=== PATIENT | female | born 1940 | race Caucasian/White ===

== ENCOUNTER → 2016-06-14 | Day surgery (SDC) | payer OTHER ==
[~2016-06-14] VITALS: Ht 160 cm; Wt 78.0 kg
[~2016-06-14] MED LIST: ACETAMINOPHEN 325 MG TAB PO PRN; ASPI81TA28 PO; ATOR-24 PO; ATROPINE SULFATE 0.1 MG/ML 5ML SYR IV PRN; CLOP1TAB15 PO; FENTANYL CITRATE INJ 50 MCG/1 ML 2 ML VIAL ONE; HEPARIN SOD (PORCINE) 1000 UNIT/ML 10 ML VIAL ONE; IBUP-1050 PO; INSDGI SC; LOSA25TA18 PO; METF-384 PO; MIDAZOLAM HCL 1 MG/ML 2ML VIAL ONE; MULT1CAP16 PO; NITROGLYCERIN/D5W 100MCG/ML 20ML SYR ONE; NTRGSL/4 UT; NiCARDipine HCL INJ 2.5 MG/ML 10 ML AMP ONE; ONDANSETRON INJ 2 MG/ML 2 ML VIAL IV PRN; REPA1TAB42 PO; SODIUM CHLORIDE 0.9% 1000ML 250 ML IV PRN; fiber PO
[2016-06-14 07:27] VITALS: BP 178/78; PULSE 89; TEMP 36.5; O2SAT 97; Ht 160 cm; Wt 78.0 kg
--- NOTE | 2016-06-14 08:37 | History & Physical Bridge Note ---
H&P Re-Evaluation Bridge Note: I have examined the patient, reviewed the History & Physical and in the interval since the performance of the History & Physical I have noted the following changes of clinical significance: No changes noted
--- NOTE | 2016-06-14 09:31 | Procedure Note ---
Pre-Mod Sedation Assessment General Date of Moderate Sedation: Jun 14, 2016. Vital Signs: Vital Signs Past 12 Hours Date Time Temp Pulse Resp B/P Pulse Ox O2 Delivery O2 Flow Rate FiO2 06/14/16 07:27 36.5 89 16 178/78 97 Room Air Review Cardiovascular: regular rate, rhythm, no edema, no gallop Abdomen: normal bowel sounds, non tender, soft Lungs: chest non-tender, lungs clear Pre-Sedation Airway Assessment Oral Cavity: WNL Short Thick Neck: No Hx of Sleep Apnea: No Smoking Status: Never Smoker ASA Classification: Class III Procedure Planning Contraindications-for Mod Sed: None Yes Notes The planned sedation has been discussed with the patient and consent obtained. I have identified the patient, determined the appropriateness of sedation and have assessed the patient immediately prior to the procedure. All medicine(s) and interventions are by my order.
--- NOTE | 2016-06-14 09:33 | Procedure Note ---
Post-Mod Sedation Assessment General Date of Moderate Sedation Jun 14, 2016. Vital Signs: Vital Signs Past 12 Hours Date Time Temp Pulse Resp B/P Pulse Ox O2 Delivery O2 Flow Rate FiO2 06/14/16 07:27 36.5 89 16 178/78 97 Room Air Review - Discharge Criteria Vital Signs Stable: Yes Alert/Oriented/Conversant: Yes Returned to Baseline Mental St: Yes Nausea Absent/Minimal: Yes Pain/Discomfort/Absent/Minimal: Yes Normal/Baseline Respirations: Yes Active Bleeding?: No Pt Received D/C Instructions: Yes Prescriptions Given: None Specific Proced. D/C Criteria Distal Pulses Present (Cardiac: Yes Groin site assessed-Card Cath: N/A Voided Prior To Discharge: N/A Discharged Patients Adult Escort/Transportation: Yes
--- NOTE | 2016-06-14 09:49 | Cardiac Catheterization ---
Procedure Note Procedure Date Jun 14, 2016. Pre-Procedure Diagnosis Positive Stress Test AUC Score 8 Post-Procedure Diagnosis Mild CAD Procedure(s) Performed Coronary Angiography (Start time 0834, Stop time 919), Left Heart Cath Water Proofer Dr. De Guzman Photogrammetrist(s) Jay HOODIS at table. Chantal Vazquez RN monitoring in lab Estimated Blood Loss 5cc Medication(s) Fentanyl (12.5mcg), Heparin, Nicardipine, Nitroglycerin, Versed (1mg), Lidocaine 1% Summary of Findings 60% ostial diagonal 1 otherwise, mild non-obstructive CAD. Hemodynamics Rest Ao: 109/52/78 Final Ao: 143/50/87 LV: 112/0/5 Recommendations Medical therapy and/or Counseling Specimens None Radiation Exposure (mGy) 1048 Contrast (mls) 120 Procedural Complication(s) None Disposition Technical Training Instructor Holding/Recovery ACC Data Cardiac Status Clinical evaluation leading to the procedure CAD Presntation: Positive Stress Test Anginal Classification: CCS II Heart Failure: No Cardiogenic Shock w/in 24Hrs: No Cardiac Arrest w/in 24Hrs: No Stress studies past 6 months: Yes Stress Testing w/SPECT MPI: Yes - Positive, Risk/Extent of Ischemia (High) Cardiac CTA: No Coronary Anatomy Dominant: Co-dominant Left Main (% Stenosis): Normal LAD (% Stenosis): Ostial (Diffuse mild luminal irregularities throughout vessel , 10%) D1 (% Stenosis): Ostial (60%), Proximal (10%), Mid (0%), Distal (10%) Circumflex (% Stenosis): Ostial (0%), Proximal (moderate calcification with 30 % stenosis), Mid (0%), Distal (0%) OM1 (% Stenosis): Normal L PL1 (% Stenosis): Normal L PDA (% Stenosis): Normal RCA (% Stenosis): Ostial (0%, successfully engaged with 3DRC), Proximal (10%), Mid (10%), Distal (10%) R PDA (% Stenosis): Normal R PL1 (% Stenosis): Normal Ramus (% Stenosis): Ostial (large vessel with mild luminal irregularities throught the vessel, 10%), Mid Diagnostic Status: Elective Closure Device Percutaneous Entry Location: Radial Closure Device: Radial Band Recommendations: Medical therapy and/or Counseling Intraprocedure Events Significant Dissection: No Perforation: No
--- NOTE | 2016-06-14 09:53 | Discharge Instructions ---
Discharge Instructions Procedure Procedure Date: Jun 14, 2016. Reason for Visit: Abn Stress Test Dr De Guzman To Do. Discharge Discharge Date: Jun 14, 2016. Discharge Diagnosis: Moderate single branch vessel CAD. Last Recorded Wt (Kilograms): 78 Anesthesia Post Anesthesia Instructions: If you have had General Anesthesia or IV Sedation: * Do not drive today. * Resume driving when surgeon permits. * Do not make important decisions or sign legal documents today. * Call surgeon for: 1. Temperature elevations greater than 101 degrees F. 2. Uncontrollable pain. 3. Excessive bleeding. 4. Persistent nausea and vomiting. 5. Medication intolerance (nausea, vomiting or rash). * For nausea and vomiting use only clear liquids such as: tea, soda, bouillon until nausea subsides, then gradually increase diet as tolerated. * If you have any concerns or questions, call your surgeon's office. If physician is unavailable and it is an emergency, call 911 or go to the nearest emergency room. Instructions Activity Recommendations: limitations as noted below Return to School/Work: with the following limitations Recommended Home Diet: low cholesterol, diabetes diet Allergies: Coded Allergies: Lisinopril (Unverified Adverse Reaction, Mild, cough, 06/14/16) Provider Instructions ACTIVITY RECOMMENDATIONS: Excess manipulation of the wrist should be avoided for the next 24-48 hours. * No lifting over 2 pounds (approximately a 1/2 gallon of milk) with the utilized arm for 24 hours. * No strenuous activity such as bowling or tennis for 3 days. * Keep the site of the procedure covered with a bandage for 24 hours. *You may shower the day after the procedure. Do not take a tub bath or submerge the puncture site in water for the next 3 days. *Do not operate any motorized equipment for 3 days. SPECIAL CARE INSTRUCTIONS: The site may be slightly bruised and sore following your procedure. Should any of the following occur, contact the Dr. who performed your procedure. 1. Redness/inflammation, swelling, chills, or fever, or colored drainage at procedure site within 3-7 days after your procedure. 2. Coldness, discoloration, ongoing numbness, severe pain, or swelling. Expect mild tingling of hand and tenderness at the puncture site for up to three days. If this persists beyond three days, or other symptoms develop, notify the DrDeena who performed your procedure. BLEEDING: If the procedure site on your wrist begins to bleed, do not panic 1. Place 1 or 2 fingers firmly just slightly above the insertion site to stop the bleeding. You may be able to feel your pulse as you hold pressure. 2. Lift your finger after 5 minutes to see if the bleeding has stopped. 3. Once the bleeding has stopped, gently wipe the wrist area clean with a bandage. * If the bleeding from your wrist does not stop after 10 minutes, or if there is a large amount of bleeding or spurting, call 911 (do not drive yourself to the hospital). SKIN IRRITATION: * You may experience some redness and/or swelling in the area where radiation was administered. If any skin irritation occurs, please contact your family physician. FOLLOW UP VISIT: Keep any scheduled doctor appointments. Follow Up Follow-up with: Dr. De Guzman at [facility] in one month. PCP as scheduled. [facility] [place] Recommendations: Call your doctor if: * Temperature above 101 degrees * Pain not relieved by pain medicine ordered * There is increased drainage or redness from any incision * You have any unanswered questions or concerns. Your Doctors Instructions noted above were prepared by provider Luis De Guzman. Patient Signature Section: Patient Instructions Signature Page Laura Arellano Patient (or Guardian) Signature/Date: I have read and understand the instructions given to me by my caregivers. Caregiver/RN/Doctor Signature/Date: The above-named patient and/or guardian has received patient instructions on this date. + Original Patient Signature Page (only) stays with chart. Please make copy for patient.
[2016-06-14 12:00] VITALS: BP 137/56; PULSE 67; O2SAT 95
== END | disposition home or self-care (01) ==
LOC: C.CATH 06:15
PROVIDERS: ATTEND Internal Medicine Cardiovascular Disease
DX: I25.10 Atherosclerotic heart disease of native coronary artery without angina pectoris (principal); R94.39 Abnormal result of other cardiovascular function study; E11.9 Type 2 diabetes mellitus without complications; Z79.4 Long term (current) use of insulin

== ENCOUNTER → 2016-09-11 | Day surgery (SDC) | payer OTHER ==
[2016-09-05 08:40] VITALS: BMI 13.0
[~2016-09-11] VITALS: Ht 157.5 cm; Wt 34.1 kg
[~2016-09-11] MED LIST changes: -ACETAMINOPHEN 325 MG TAB PO PRN; -CLOP1TAB15 PO; +EpHEDrine SULFATE INJ 50 MG/ML AMP IV PRN; -FENTANYL CITRATE INJ 50 MCG/1 ML 2 ML VIAL ONE; -HEPARIN SOD (PORCINE) 1000 UNIT/ML 10 ML VIAL ONE; +LIDOCAINE HCL 2% 2 ML VIAL (20MG/ML) ONE; -MIDAZOLAM HCL 1 MG/ML 2ML VIAL ONE; -NITROGLYCERIN/D5W 100MCG/ML 20ML SYR ONE; -NiCARDipine HCL INJ 2.5 MG/ML 10 ML AMP ONE; -ONDANSETRON INJ 2 MG/ML 2 ML VIAL IV PRN; +PROPOFOL IV EMULSION 10 MG/ML 20 ML VIAL IV ONE; +REPA1TAB26 PO; -REPA1TAB42 PO; -SODIUM CHLORIDE 0.9% 1000ML 250 ML IV PRN; +SODIUM CHLORIDE 0.9% 500ML 500 ML IV ONE; -fiber PO
--- NOTE | 2016-09-11 08:32 | Endo History and Physical ---
History & Physical Date of Service: Sep 11, 2016. Chief Complaint: Anemia Referring Physician: Dr. Howard History of Present Illness Rectal bleeding and anemia Past Medical History Arthritis, High Cholesterol, Hypertension Past Surgical History Hx Cardiac Surgery: Yes (CARDIAC CATH NO STENTS-06/14/16) Hx Internal Defibrillator: No Hx Pacemaker: No Hx Abdominal Surgery: Yes (LAPAROSCOPY) Hx of Implantable Prosthesis: No Hx Post-Op Nausea and Vomiting: No Hx Cancer Surgery: No Hx Thoracic Surgery: No Hx Orthopedic: Yes (R RCR) Hx Urinary Tract Surgery: No Family History None Social History Smoking Status: Never Smoker Hx Substance Use: No Hx Alcohol Use: No Allergies Coded Allergies: Lisinopril (Verified Adverse Reaction, Mild, cough, 09/11/16) Current Medications Reported Home Medications Medications Dose Route/Sig Max Daily Dose Days Date Category Nitrostat (Nitroglycerin) 0.4 Mg Tab 0.4 Mg UT PRN 09/05/16 Reported Lantus (Insulin Glargine) Vial 24 Units SC QPM 04/13/15 Reported Advil (Ibuprofen) 200 Mg Tab 400 Mg PO QAM PRN 04/13/15 Reported Multi Complete (Multiple Vitamins W/ Minerals) 1 Cap Cap 1 Tab PO QAM 04/13/15 Reported Aspirin Ec (Aspirin) 81 Mg Tab 81 Mg PO QPM 04/13/15 Reported Prandin (Repaglinide) 1 Mg Tab 2 Mg PO AC 04/13/15 Reported Glucophage (Metformin Hcl) 1,000 Mg Tab 1,000 Mg PO BID 04/13/15 Reported Cozaar (Losartan Potassium) 25 Mg Tab 1 Tab PO QPM 90 04/13/15 Reported Lipitor (Atorvastatin Calcium) 40 Mg Tab 1 Tab PO QPM 30 04/13/15 Reported Vital Signs Weight (Kilograms): 34.09 Height (Feet): 5 Height (Inches): 2 Physical Exam General Appearance: WD/WN, no apparent distress Respiratory/Chest: Auscultation: breath sounds normal, no wheezing Cardiovascular: Heart Auscultation: RRR, no murmurs Abdomen: Inspection & Palpation: soft, no tenderness, guarding & rebound Assessment and Plan EGD and colonoscopy.
[2016-09-11 08:37] VITALS: Ht 157.5 cm; Wt 34.1 kg
--- NOTE | 2016-09-11 09:43 | Discharge Instructions ---
Endoscopy Patient Instructions Date / Procedure(s) Performed Sep 11, 2016. Colonoscopy, EGD Allergy Information Coded Allergies: Lisinopril (Verified Adverse Reaction, Mild, cough, 09/11/16) Discharge Date / Findings Sep 11, 2016. Internal hemorrhoids, small polyp, rectal ulcer; normal upper endoscopy Medication Instructions Stopped Medication(s): INSTRUCTED TO NOT TAKE INSULIN OR METFORMIN. Restart Stopped Medication(s): Restart all medications today. Provider Instructions Activity Restrictions - No exercising or heavy lifting for 24 hours. - Do not drink alcohol the day of the procedure. - Do not drive a car or operate machinery until the day after the procedure. - Do not make any important decisions or sign important papers in 24 hours after the procedure. Following Day: - Return to full activity which may include returning to work/school. Diet Start your diet with liquids and light foods (jello, soup, juice, toast). Then eat your usual diet if not nauseated. Treatment For Common After Affects For mild abdominal pain, bloating, or excessive gas: - Rest - Eat lightly - Lie on right side Follow-Up Information Follow-up with DR. MENDOZA as scheduled Anesthesia Information What You Should Know You have had a procedure that required some medicine to reduce anxiety and discomfort. This treatment is called moderate sedation. After receiving the treatment, you may be sleepy, but you will be able to breathe on your own. The effects of the treatment may last for several hours. Follow these instructions along with Activity/Diet recommendations noted above: * Do NOT do anything where dizziness or clumsiness would be dangerous. * Rest quietly at home today, then you can be up and about tomorrow. * Have a responsible person stay with you the rest of today. * You may have had an I.V. today. If so, you may take the dressing off later today. Recommendations Call your doctor if: * Trouble breathing * Continuous vomiting for more than 24 hours * Temperature above 101 degrees * Severe abdominal pain or bloating * Pain not relieved by pain medicine ordered * There is increased drainage or redness from any incision * A large amount of rectal bleeding greater than 2-3 tablespoons. (If you had a polyp/s removed or have hemorrhoids, a small amount of blood - from the rectum is to be expected.) * You have any unanswered questions or concerns. IN THE EVENT OF A SERIOUS EMERGENCY, GO TO THE NEAREST EMERGENCY ROOM Your discharge instructions were prepared by provider Jameel Last. Patient Instructions Signature Page Laura Arellano Patient (or Guardian) Signature/Date: I have read and understand the instructions given to me by my caregivers. Caregiver/RN/Doctor Signature/Date: The above-named patient and/or guardian has received patient instructions on this date. + Original Patient Signature Page (only) stays with chart. Please make copy for patient.
--- NOTE | 2016-09-11 09:46 | GI REPORT ---
Procedure Date: 09/11/2016 8:27 AM Procedure: Colonoscopy Indications: Iron deficiency anemia Medicines: Monitored Anesthesia Care Complications: No immediate complications. Estimated blood loss: None. Estimated Blood Loss: Estimated blood loss: none. Procedure: Pre-Anesthesia Assessment: - Prior to the procedure, a History and Physical was performed, and patient medications, allergies and sensitivities were reviewed. The patient's tolerance of previous anesthesia was reviewed. - ASA Grade Assessment: IV - A patient with severe systemic disease that is a constant threat to life. After I obtained informed consent, the scope was passed under direct vision. Throughout the procedure, the patient's blood pressure, pulse, and oxygen saturations were monitored continuously. The On-site loaner was introduced through the anus and advanced to the terminal ileum, with identification of the appendiceal orifice and IC valve. The colonoscopy was performed with ease. The patient tolerated the procedure well. The quality of the bowel preparation was excellent. The bowel preparation used was split dose MIralax. Findings: A 1 mm polyp was found in the rectum. The polyp was sessile. The polyp was removed with a cold biopsy forceps. Resection and retrieval were complete. A single (solitary) two mm ulcer was found in the distal rectum. No bleeding was present. Biopsies were taken with a cold forceps for histology. Internal hemorrhoids were found during retroflexion. The hemorrhoids were medium-sized. Diverticula were found in the sigmoid colon. Verification of patient identification for the specimens was done by the physician and nurse using the patient's name, date and medical record number. Impression: - One 1 mm polyp in the rectum, removed with a cold biopsy forceps. Resected and retrieved. - A single (solitary) ulcer in the distal rectum. Biopsied. - Internal hemorrhoids. - Diverticulosis in the sigmoid colon. Recommendation: - Await pathology results. - Discharge patient to home (with escort). Jameel Last M.D. Jameel Last MD 09/11/2016 9:41:44 AM This report has been signed electronically. Note Initiated On: 09/11/2016 8:27 AM I attest to the content of the Intraoperative Record and orders documented therein, exceptions below
--- NOTE | 2016-09-11 09:46 | GI REPORT ---
Procedure Date: 09/11/2016 8:27 AM Procedure: Upper GI endoscopy Indications: Iron deficiency anemia Medicines: Monitored Anesthesia Care Complications: No immediate complications. Estimated blood loss: None. Estimated Blood Loss: Estimated blood loss: none. Procedure: Pre-Anesthesia Assessment: - Prior to the procedure, a History and Physical was performed, and patient medications, allergies and sensitivities were reviewed. The patient's tolerance of previous anesthesia was reviewed. - ASA Grade Assessment: IV - A patient with severe systemic disease that is a constant threat to life. After obtaining informed consent, the endoscope was passed under direct vision. Throughout the procedure, the patient's blood pressure, pulse, and oxygen saturations were monitored continuously. The Scope was introduced through the mouth, and advanced to the third part of the duodenum. Small bowel enteroscopy was deemed necessary. The upper GI endoscopy was accomplished with ease. The patient tolerated the procedure well. Findings: The upper third of the esophagus, middle third of the esophagus and lower third of the esophagus were normal. The Z-line was regular and was found 40 cm from the incisors. The entire examined stomach was normal. Biopsies were taken with a cold forceps for Helicobacter pylori testing. The examined duodenum was normal. Biopsies for histology were taken with a cold forceps for evaluation of celiac disease. Verification of patient identification for the specimens was done by the physician and nurse using the patient's name, date and medical record number. Impression: - Normal upper third of esophagus, middle third of esophagus and lower third of esophagus. - Z-line regular, 40 cm from the incisors. - Normal stomach. Biopsied. - Normal examined duodenum. Biopsied. Recommendation: - Perform a colonoscopy today. Jameel Last M.D. Jameel Last MD 09/11/2016 9:21:35 AM This report has been signed electronically. Note Initiated On: 09/11/2016 8:27 AM I attest to the content of the Intraoperative Record and orders documented therein, exceptions below
--- NOTE | 2016-09-11 09:46 | Anesthesiology Progress Note ---
Anesthesia Post Op Note Date & Time Sep 11, 2016 at 09:46 Vital Signs Vital Signs Past 12 Hours Date Time Temp Pulse Resp B/P (MAP) Pulse Ox O2 Delivery O2 Flow Rate FiO2 09/11/16 08:38 36.7 84 153/76 (243) 97 Notes Mental Status: alert / awake / arousable, participated in evaluation Pt Amnestic to Procedure: Yes Nausea / Vomiting: adequately controlled Pain: adequately controlled Airway Patency, RR, SpO2: stable & adequate BP & HR: stable & adequate Hydration State: stable & adequate Anesthetic Complications: no major complications apparent
[2016-09-11 10:13] VITALS: BP 154/61; PULSE 61; O2SAT 98
== END | disposition home or self-care (01) ==
LOC: C.GI 08:10
PROVIDERS: ATTEND Internal Medicine Gastroenterology
DX: D50.9 Iron deficiency anemia, unspecified (principal); D12.8 Benign neoplasm of rectum; K64.8 Other hemorrhoids; K62.6 Ulcer of anus and rectum; K57.30 Diverticulosis of large intestine without perforation or abscess without bleeding; K62.5 Hemorrhage of anus and rectum; E78.00 Pure hypercholesterolemia, unspecified; Z79.82 Long term (current) use of aspirin; Z79.899 Other long term (current) drug therapy

== ENCOUNTER 2018-08-06 14:56 | Inpatient (IN) ==
[2018-08-06] MEDS ORDERED: MoRPHine SULFATE 2 MG/ML CARP IV PRN (17:31)
[2018-08-06] MEDS ORDERED: NALOXONE HCL 0.4 MG/1 ML VIAL/CARP IV PRN (17:31)
[2018-08-06] MEDS ORDERED: BISACODYL 10 MG SUPP PR PRN (17:31)
[2018-08-06] MEDS ORDERED: MAGNESIUM HYDROXIDE SUSP 30 ML UDC PO PRN (17:31)
[2018-08-06 18:24] LABS: Basophils # (auto) 0.02 K/uL (0-0.2); Basophils % (auto) 0.1 %; Eosinophils # (auto) 0.01 K/uL (0-0.5); Eosinophils % (auto) 0.1 %; Hematocrit (blood only) 30.7 % (37-47); Hemoglobin 10.2 g/dL (12.0-16.0); Immature Granulocytes # (auto) 0.06 K/uL (0.00-0.02); Immature Granulocytes % (auto) 0.4 %; Lymphocytes # (auto) 1.76 K/uL (1.2-3.4); Lymphocytes % (auto) 10.8 %; Mean Corpuscular Hgb Conc 33.2 g/dL (32-36); Mean Corpuscular Volume 83.2 fL (80-100); Mean Platelet Volume 10.2 fL (7.4-10.4); Monocytes # (auto) 0.05 K/uL (0.11-0.59); Monocytes % (auto) 0.3 %; Neutrophils # (auto) 14.34 K/uL (1.4-6.5); Neutrophils % (auto) 88.3 %; Platelet Count 272 K/uL (130-400); RDW Standard Deviation 42.7 fL (36.4-46.3); Red Blood Count 3.69 M/uL (4.2-5.4); White Blood Count 16.24 K/uL (4.8-10.8)
[2018-08-06] MEDS ORDERED: GLUCOSE 40% GEL 15 GM TUBE PO PRN (18:31)
[2018-08-06] MEDS ORDERED: GLUCAGON FOR INJ 1 MG VIAL SQ PRN (18:31)
[2018-08-06] MEDS ORDERED: DEXTROSE 50% 50 ML SYRINGE IV PRN (18:31)
[2018-08-06] MEDS ORDERED: CARBOHYDRATES FOR HYPOGLYCEMIA PO PRN (18:31)
[2018-08-06] MEDS ORDERED: GLUCOSE 10 TABS/TUBE PO PRN (18:31)
[2018-08-06 18:46] LABS: INR 1.1 (0.9-1.1); Partial Thromboplastin Time 27.1 Seconds (21.0-31.0)
[2018-08-06 18:50] LABS: Albumin Level 3.1 gm/dl (3.4-5.0); BUN Creatinine Ratio 20.4 (10-20); Calcium 9.5 mg/dl (8.5-10.1); Creatinine Clr Calc Pharmacy 50.5 ml/min; Potassium 3.8 mmol/L (3.5-5.1)
[2018-08-06 18:52] LABS: Albumin Globulin Ratio 0.7 (0.9-2); Bilirubin,Total 0.3 mg/dl (0.2-1); Globulin 4.2 gm/dl (2.5-4.0); Total Protein 7.3 gm/dl (6.4-8.2)
--- NOTE | 2018-08-06 20:26 | XRay Report ---
XR chest 1V portable CLINICAL HISTORY: 77 years-old Female presenting with pre op. TECHNIQUE: Portable upright AP view of the chest was obtained. COMPARISON: None. FINDINGS: Atherosclerosis of the aortic arch. Cardiac silhouette top normal in size. Mild pulmonary vascular pr ominence and interstitial thickening suggested. Mildly low lung volumes. Trace bilateral pleural effu sions not excluded. No large pneumothorax. Degenerative changes of the thoracic spine. Upper abdomen normal. IMPRESSION: 1. Findings suggest volume overload and early congestive change. 2. Borderline cardiomegaly. 3. Trace bilateral pleural effusions not excluded. Electronically signed by: Shlomo Demarco M.D. 08/06/2018 8:24 PM
--- NOTE | 2018-08-06 20:41 | XRay Report ---
XR femur RT 2V routine CLINICAL HISTORY: 77 years-old Female presenting with right hip fracture. TECHNIQUE: Frontal and lateral views of the right femur were obtained. COMPARISON: None. FINDINGS: Mildly displaced fracture of the lesser trochanter of the right femur. No gross underlying osseous le isa is apparent. The right hip joint and right knee joint are congruent. Advanced degenerative theodore es of the medial compartment of the knee. Mild degenerative changes of the right hip. Visualized port ion of bony pelvis intact. No additional fracture of the right femur. Stippled calcification in the d istal diaphysis of the femur suggests an underlying chondroid lesion. Osteopenia suspected. IMPRESSION: 1. Mildly displaced avulsion fracture of the lesser trochanter. This traditionally in an adult raise s concern for an underlying lesion and a pathologic avulsion fracture. Correlate for history of meaghan covarrubias. An iliopsoas avulsion fracture is atypical in a patient of this age apart from a pathologic fr acture. 2. Degenerative changes of the knee and hip. Electronically signed by: Shlomo Demarco M.D. 08/06/2018 8:40 PM
[2018-08-06] MEDS ORDERED: INSULIN ASPART 100 UNITS/ML 3 ML PEN SC SCH (21:00)
[2018-08-06] MEDS: ATORVASTATIN 40 MG TAB PO SCH (21:07)
[2018-08-06] MEDS: DOCUSATE SODIUM/SENNA 50/8.6MG TAB PO SCH (21:07)
[2018-08-06] MEDS: INSULIN GLARGINE SOLOSTAR 100 UNITS/ML 3 ML PEN SC SCH (21:09)
--- NOTE | 2018-08-06 21:22 | History & Physical Report ---
Date of Service August 06, 2018 Assessment & Plan (1) Closed right hip fracture: -Admitted to [facility] as a transfer from [facility] ED -Patient found to have a right hip fracture after she sustained with what seems to be a mechanical fall in a grocery store parking lot -EKG without evidence of acute ischemia, labs unremarkable; CXR suggesting early congestive change, however patient does not examine to be volume overloaded on exam -Noted cardiac cath 05/2016-mild to moderate nonobstructive CAD -Echocardiogram 06/2017-EF 65 to 69%, no significant valvular disease -Continue aspirin, statin, beta-fracisco without interruption -Patient would be considered moderate/acceptable risk and can proceed to the OR -Anesthesia consult for preop evaluation -Case was discussed with Dr. Miller regarding patient being anticoagulated on Eliquis -since creatinine clearance is > 30, Eliquis can be held for 24 to 48 hours and patient can proceed to surgery (2) Atrial flutter: -Currently in NSR -Rate controlled on metoprolol which will be continued -Holding Eliquis as above in anticipation of surgical hip repair -resume when okay with orthopedics (3) CKD (chronic kidney disease), stage III: - baseline creat ~ 1.0 - creat noted to be 0.8 today - continue to monitor, avoid nephrotoxic agents when able (4) DM type 2 (diabetes mellitus, type 2): -Hgb A1c 8.5 05/2018 -Hold oral agents and Trulicity and utilize Lantus and NovoLog per protocol while hospitalized (5) Hypertension: -BP controlled, continue metoprolol and losartan (6) Chronic anemia: -Baseline hemoglobin ~ 10-11 -Hgb 10.2 today (7) Mild dementia: -Continue Aricept (8) DVT prophylaxis: -SCDs due to planned surgical hip repair History of Present Illness Chief Complaint: Right hip fracture Primary Care Provider: Rosalinda Howard DO 77-year-old female who was transferred from [facility] ED for management of right hip fracture. Patient received pain medication prior to her arrival history is somewhat limited from her at this time. is the bedside and reports that they were out shopping for groceries when she tripped trying to get into the car. There was no loss of consciousness. No associated chest pain or shortness of breath. reports patient has been doing well recently. No reported chest pain or exertional shortness of breath. Denies other recent illnesses, fevers, chills. No abdominal pain, nausea, vomiting, diarrhea. Denies urinary symptoms. At the time my exam, patient does arouse to loud verbal stimuli, reports she is having right hip pain however that is controlled. Allergies Allergy/AdvReac Type Severity Reaction Status Date / Time lisinopril AdvReac Mild cough Verified 09/11/16 08:25 Home Medications Home Medications Medication Instructions Recorded Confirmed Type apixaban [Eliquis] 5 mg PO BID 08/06/18 08/06/18 History aspirin 81 mg PO DAILY 08/06/18 08/06/18 History atorvastatin 40 mg PO HS 08/06/18 08/06/18 History canagliflozin [Invokana] 100 mg PO DAILY 08/06/18 08/06/18 History cyanocobalamin (vitamin B-12) 1,000 mcg PO DAILY 08/06/18 08/06/18 History donepezil 10 mg PO DAILY 08/06/18 08/06/18 History dulaglutide [Trulicity] 0.75 mg SUBCUT WK 08/06/18 08/06/18 History insulin glargine [Basaglar KwikPen 24 unit SUBCUT HS 08/06/18 08/06/18 History U-100 Insulin] losartan 25 mg PO DAILY 08/06/18 08/06/18 History metformin 1,000 mg PO BID 08/06/18 08/06/18 History metoprolol succinate 25 mg PO DAILY 08/06/18 08/06/18 History mirabegron [Myrbetriq] 25 mg PO DAILY 08/06/18 08/06/18 History vfcbyjov-eyo-PT-lycopen-lutein 1 tab PO DAILY 08/06/18 08/06/18 History [Centrum Silver] Past Med/Surg History Medical History Mild dementia (Chronic) History of hysterectomy (Chronic) Chronic anemia (Chronic) CAD (coronary artery disease) (Chronic) 05/2016-cardiac cath showed mild to moderate nonobstructive CAD Hypertension (Chronic) Atrial flutter (Chronic) CKD (chronic kidney disease), stage III (Chronic) DM type 2 (diabetes mellitus, type 2) (Chronic) Surgical History History of arthroscopy of right shoulder (Chronic) History of cataract surgery (Chronic) History of appendectomy (Chronic) H/O carpal tunnel repair (Chronic) Family History Father Lung disease Social History Preferred Language: Ivorian Communication Ability: Effective Bank Accountant Required: No Beliefs That Will Affect Care: Jainism Current Living Situation: Spouse Other Information That Helps Us Care for You: No Feels Safe at Home: Yes Safety Concerns: Feels Safe At This Time Smoking Status: Never smoker Hx Alcohol Use: No Hx Substance Use: No Review of Systems Review of Systems: Unobtainable due to reduced consciousness Physical Exam Constitutional: WD/WN, vitals as above Eyes: PERRL, conjunctivae normal, anicteric sclerae ENMT: external ear and nose normal, oropharynx normal Respiratory: normal respiratory effort, lungs clear to auscultation Cardiovascular: Rate/Rhythm: regular rate and regular rhythm Vessels: normal peripheral pulses Extremities: no edema Gastrointestinal (Abdomen): normal bowel sounds, soft, nontender, no hepatosplenomegaly Musculoskeletal: Extremities: + abnormal strength (Unable to assess strength secondary to reduced consciousness from pain medications, patient does move all extremities) and + lower leg abnormality (Right leg shortened and externally rotated) Right; no cyanosis and no clubbing Skin: no rashes, warm and dry Neurologic: PERRL, EOMI, accommodation nl, no face palsy, no dysarthria Psychiatric: Orientation: + not alert (Patient arouses to loud verbal stimuli however falls back to sleep quickly during exam and does not answer most questions) Results & Data Vital Signs (Past 12 Hours) Vital Signs Temp Pulse Resp BP Pulse Ox 08/06/18 17:32 36.6 C 87 18 148/71 H 91 Laboratory Results Short CBC 08/06/18 Range/Units 18:09 WBC 16.24 H (4.8-10.8) K/uL Hgb 10.2 L (12.0-16.0) g/dL Hct 30.7 L (37-47) % Plt Count 272 (130-400) K/uL BMP 08/06/18 18:09 Sodium 138 Potassium 3.8 Chloride 104 Carbon Dioxide 25 BUN 18 Creatinine 0.89 Glucose 246 H Calcium 9.5 Liver Function 08/06/18 Range/Units 18:09 Total Bilirubin 0.3 (0.2-1) mg/dl AST 12 L (15-37) U/L ALT 17 (12-78) U/L Alkaline Phosphatase 152 H (45-117) U/L Albumin 3.1 L (3.4-5.0) gm/dl Code Status & VTE Plan Code Status Patient is a full code as per my discussion with patient's and family who is at the bedside. VTE Prophylaxis Plan VTE Prophylaxis will be ordered: Yes Supervising Physician Co-Signing Physician Notes Pt was seen and examined. Agreed with Donna WILBURN exam, assessment and plan. 77-year-old female with PMH of CAD, HTN , atrial flutter was sent from [facility] as a direct admission for right hip fracture. is the bedside and reports that they were out shopping for groceries when she tripped trying to get into the car. currently pain control. There was no loss of consciousness, dizziness and chest pain before the fall. Right hip xray shwoed Mildly displaced avulsion fracture of the lesser trochanter. Ortho on board and plan to take to OR. Pt denies any chest pain, palpitation, dizziness and SOB. as per family pt was very active before the injury. She was able to walk and climb stairs with no chest discomfort, SOB and palpitation. Before the hip fracture, she had a functional status capacity with a METS greater than 4. she had a cardiac cath done on 05/2016 that showed mild to moderate nonobstructive CAD. Echocardiogram on 06/2017 showed EF 65 to 69%, no significant valvular disease. EKG showed no ischemic changes, only bifascicular block. CXR showed Findings suggest volume overload and early congestive change. Procedure risk discussed with patient and family such as bleeding, infection, blood clot, post op complication and even . Intermediate procedure risk and Family understood surgical risk. Ortho will discuss in details with patient and family about the procedure. OK to p roceed with the procedure. Will monitor closely for sign of fluid overload. Hold Eliquis and Keep NPO after midnight. MD Shilpi
[2018-08-06 21:37] LABS: Appearance Urine Clear (Clear); Bacteria Urine Automated 1+ (Negative); Bilirubin Urine Negative (Negative); Blood Urine 2+ (Negative); Color Urine Yellow; Glucose Urine UA 3+ (Negative); Ketones Urine 1+ (Negative); Leukocyte Esterase Urine Negative (Negative); Nitrite Urine Positive (Negative); Protein Urine Negative (Negative); RBC Urine Automated 0-4 /hpf (0-4); Urobilinogen Urine Negative (Negative)
[2018-08-07] MEDS ORDERED: Nursing to Pharmacy Communication ONE ×2 (01:11→17:01)
[2018-08-07] MEDS: INSULIN ASPART 100 UNITS/ML 3 ML PEN SC SCH ×6 (02:11→22:11)
[2018-08-07] MEDS ORDERED: CEFAZOLIN 2000MG 2,000 MG/15 ML SYR IV SCH ×2 (06:00→15:34)
[2018-08-07] MEDS ORDERED: ONDANSETRON INJ 2 MG/ML 2 ML VIAL IV PRN ×2 (06:32→11:44)
[2018-08-07] MEDS ORDERED: SODIUM CHLORIDE 0.9% 1000ML 1,000 ML IV SCH (06:45)
[2018-08-07] MEDS ORDERED: ONDANSETRON INJ 2 MG/ML 2 ML VIAL IV ONE (06:45)
[2018-08-07] MEDS ORDERED: BUPIVACAINE 0.5 % 5 MG/1 ML PF 10ML VIAL ONE (07:00)
[2018-08-07] MEDS: LOSARTAN POTASSIUM 25 MG TAB PO SCH (07:38)
[2018-08-07] MEDS: DONEPEZIL HCL 10 MG TAB PO SCH (07:39)
[2018-08-07 08:10] LABS: Hematocrit (blood only) 30.8 % (37-47); Hemoglobin 10.3 g/dL (12.0-16.0); Mean Corpuscular Hgb Conc 33.4 g/dL (32-36); Mean Corpuscular Volume 82.8 fL (80-100); Platelet Count 300 K/uL (130-400); RDW Coefficient of Variation 14.1 % (11.5-14.5); Red Blood Count 3.72 M/uL (4.2-5.4)
[2018-08-07] MEDS: CEROVITE ADV FORMULA TAB PO SCH (08:11)
[2018-08-07] MEDS: ASPIRIN 81 MG ECTAB PO SCH (08:11)
[2018-08-07] MEDS: CYANOCOBALAMIN 500 MCG TABLET (VITAMIN B-12) PO SCH (08:11)
--- NOTE | 2018-08-07 08:35 | Anesthesiology Consultation ---
Date of Service August 07, 2018 Assessment & Plan (1) Encounter for pre-operative examination: Chart Review Chart Review: Acceptable Risk for Surgery Consults Requested none History Surgery Operation Date: 08/07/18 07:10 Proposed Procedures p Right Trochanteric Nail Hip Synthes - Luis Felipe Miller DO Height/Weight Height: 5 ft 2 in Weight: 73.51 kg Allergies Allergy/AdvReac Type Severity Reaction Status Date / Time lisinopril AdvReac Mild cough Verified 09/11/16 08:25 Medications Home Medications Medication Instructions Recorded Confirmed Last Taken apixaban [Eliquis] 5 mg PO BID 08/06/18 08/06/18 Unknown aspirin 81 mg PO DAILY 08/06/18 08/06/18 Unknown atorvastatin 40 mg PO HS 08/06/18 08/06/18 Unknown canagliflozin [Invokana] 100 mg PO DAILY 08/06/18 08/06/18 Unknown cyanocobalamin (vitamin B-12) 1,000 mcg PO DAILY 08/06/18 08/06/18 Unknown donepezil 10 mg PO DAILY 08/06/18 08/06/18 Unknown dulaglutide [Trulicity] 0.75 mg SUBCUT WK 08/06/18 08/06/18 Unknown insulin glargine [Basaglar KwikPen 24 unit SUBCUT HS 08/06/18 08/06/18 Unknown U-100 Insulin] losartan 25 mg PO DAILY 08/06/18 08/06/18 Unknown metformin 1,000 mg PO BID 08/06/18 08/06/18 Unknown metoprolol succinate 25 mg PO DAILY 08/06/18 08/06/18 Unknown mirabegron [Myrbetriq] 25 mg PO DAILY 08/06/18 08/06/18 Unknown ozoulczz-loc-JH-lycopen-lutein 1 tab PO DAILY 08/06/18 08/06/18 Unknown [Centrum Silver] Active Medications Generic Name Dose Route Start Last Admin Trade Name Freq PRN Reason Stop Dose Admin Aspirin 81 mg 08/07/18 09:00 08/07/18 08:11 Ecotrin Ectab PO 09/06/18 08:59 Not Given DAILY CAROL Atorvastatin Calcium 40 mg 08/06/18 21:00 08/06/18 21:07 Lipitor PO 09/05/18 20:59 Not Given HS CAROL Cyanocobalamin 1,000 mcg 08/07/18 09:00 08/07/18 08:11 Vitamin B-12 PO 09/06/18 08:59 Not Given DAILY CAROL Donepezil HCl 10 mg 08/07/18 09:00 08/07/18 07:39 Aricept PO 09/06/18 08:59 10 mg DAILY CAROL Administration Sodium Chloride 1,000 mls @ 80 mls/hr 08/07/18 06:45 08/07/18 06:51 Nss 1000ml IV 09/06/18 06:44 80 mls/hr .[id number] CAROL Administration Insulin Aspart 0 units 08/07/18 01:30 08/07/18 06:14 Novolog Flexpen SC 09/06/18 01:29 2 units Q6 CAROL Administration Insulin Glargine 0 - 15 units 08/06/18 21:00 08/06/18 21:09 Lantus Solostar Pen SC 09/05/18 20:59 15 units BID CAROL Administration Losartan Potassium 25 mg 08/07/18 09:00 08/07/18 07:38 Cozaar PO 09/06/18 08:59 25 mg DAILY CAROL Administration Metoprolol Succinate 25 mg 08/07/18 09:00 08/07/18 07:38 Toprol Xl PO 09/06/18 08:59 25 mg DAILY CAROL Administration Mirabegron 25 mg 08/07/18 09:00 08/07/18 08:11 Myrbetriq Er PO 09/06/18 08:59 Not Given DAILY CAROL Morphine Sulfate 2 mg 08/06/18 17:31 08/07/18 06:15 Morphine Sulfate IV 08/20/18 17:30 2 mg Q4H PRN Administration MODERATE Pain (Scale 4,5,6) Multivitamins/Minerals 1 tab 08/07/18 09:00 08/07/18 08:11 Multivitamin W/ Minerals Tab PO 09/06/18 08:59 Not Given DAILY CAROL Senna/Docusate Sodium 2 tab 08/06/18 21:00 08/06/18 21:07 Senokot S PO 09/05/18 20:59 Not Given HS CAROL NPO Date Last Intake of Fluids: 08/06/18 Time Last Intake of Fluids: 23:59 Date Last Intake of Solids: 05/21/19 Time Last Intake of Solids: 23:59 Past Medical History Medical History Mild dementia (Chronic) History of hysterectomy (Chronic) Chronic anemia (Chronic) CAD (coronary artery disease) (Chronic) 05/2016-cardiac cath showed mild to moderate nonobstructive CAD Hypertension (Chronic) Atrial flutter (Chronic) CKD (chronic kidney disease), stage III (Chronic) DM type 2 (diabetes mellitus, type 2) (Chronic) Exercise / Class Metabolic Activity III < 4 Walking/Shop/Light housework Past Family History Family History Father Lung disease Past Surgical History Surgical History History of arthroscopy of right shoulder (Chronic) History of cataract surgery (Chronic) History of appendectomy (Chronic) H/O carpal tunnel repair (Chronic) Social History Smoking Status: Never smoker Hx Alcohol Use: No Hx Substance Use: No Physical Exam Vital Signs Last Vital Signs Temp 98.4 F 08/07/18 07:53 Pulse 81 08/07/18 07:53 Resp 18 08/07/18 07:53 BP 131/63 08/07/18 07:53 Pulse Ox 93 08/07/18 07:53 ENMT Mouth: + dental restorations Thyromental Distance: > or= 3.5 Finger Breadths Mallampati Class: II Neck normal visual inspection Respiratory normal respiratory effort Auscultation: lungs clear to auscultation bilaterally Cardiovascular Rate/Rhythm: regular rate and regular rhythm Testing Electrocardiogram Date: 08/06/18 Normal sinus rhythm, rate 82 bpm Possible Left atrial enlargement Right bundle branch block Left anterior fascicular block Bifascicular block Abnormal ECG When compared with ECG of 04-JAN-2009 17:46, Left anterior fascicular block is now Present T wave inversion no longer evident in Anterior leads Chest X-Ray Date: 08/06/18 IMPRESSION: 1. Findings suggest volume overload and early congestive change. 2. Borderline cardiomegaly. 3. Trace bilateral pleural effusions not excluded. Echocardiogram Date: 06/20/17 EF: 65-69% LV Function: normal RWMA: + none There are periods of atrial flutter with 2:1 conduction, and sinus rhythm in the 70s during study. There is aortic valve sclerosis without stenosis. Cardiac Catheterization Date: 06/14/16 Dominant: Co-dominant Left Main (% Stenosis): Normal LAD (% Stenosis): Ostial (Diffuse mild luminal irregularities throughout vessel, 10%) D1 (% Stenosis): Ostial (60%), Proximal (10%), Mid (0%), Distal (10%) Circumflex (% Stenosis): Ostial (0%), Proximal (moderate calcification with 30% stenosis), Mid (0%), Distal (0%) OM1 (% Stenosis): Normal L PL1 (% Stenosis): Normal L PDA (% Stenosis): Normal RCA (% Stenosis): Ostial (0%, successfully engaged with 3DRC), Proximal (10%), Mid (10%), Distal (10%) R PDA (% Stenosis): Normal R PL1 (% Stenosis): Normal Ramus (% Stenosis): Ostial (large vessel with mild luminal irregularities throught the vessel, 10%), Mid
[2018-08-07 08:38] LABS: Calcium 9.2 mg/dl (8.5-10.1); Creatinine Clr Calc Pharmacy 46.3 ml/min; Est GFR (African American) 65.8; Est GFR (Non-African American) 56.7; Potassium 3.8 mmol/L (3.5-5.1)
[2018-08-07] MEDS ORDERED: METOPROLOL SUCC 25MG EXT REL TAB PO SCH (09:00)
[2018-08-07] MEDS ORDERED: MIRABEGRON ER 25 MG TAB PO SCH (09:00)
[2018-08-07] MEDS: INSULIN GLARGINE SOLOSTAR 100 UNITS/ML 3 ML PEN SC SCH ×2 (09:53→21:33)
[2018-08-07] MEDS ORDERED: fentaNYL citrate 100 MCG/2 ML VIAL ONE (10:33)
[2018-08-07] MEDS ORDERED: LIDOCAINE HCL 2% 2 ML VIAL/AMP(20MG/ML) INFIL ONE (10:33)
[2018-08-07] MEDS ORDERED: PROPOFOL IV EMULSION 10 MG/ML 20 ML VIAL IV ONE (10:33)
[2018-08-07] MEDS ORDERED: ONDANSETRON INJ 2 MG/ML 2 ML VIAL ONE (10:33)
--- NOTE | 2018-08-07 10:38 | Orthopedic Consultation ---
Date of Consultation August 07, 2018 Assessment & Plan (1) Closed right hip fracture: Right intertrochanteric hip fracture noted on CT scan. Femur films done last night here at [facility] showed an avulsion fracture of the lesser trochanter but no other fracture. I spoke with in radiology this morning. He reviewed the CT scan that was done at [facility] and confirmed that she does have an intertrochanteric hip fracture of the right hip. Patient will need a trochanteric femoral nailing performed. Patient is currently on Eliquis which has been held. This is planned today for early afternoon with Dr Miller. Examined, agree with above assessment plan. I have indicated the patient for closed reduction internal fixation of right hip with cephalo-medullary nail. The risk benefits complications alternatives of the procedure were expanded the patient detail which include however not limited to infection, blood clots, acute blood loss, injury to surrounding nerves, bone, vessels, soft tissue, arthrofibrosis, chronic pain, malunion, nonunion, failure of the implant, need for additional surgery, loss of limb and loss of life. The patient and family members wish to proceed with surgical intervention at this time informed consent was obtained. Supervising Physician Co-Signing Physician Notes MD Shilpi History of Present Illness Reason for Consultation: Right intertrochanteric hip fracture Attending Physician: Isidoro Vanegas MD History of Present Illness Patient is a 77-year-old female who states that she went to the grocery store with her yesterday. Family is present and provides some history as well. After shopping, they decided to switch drivers of the vehicle. The patient was getting out of her door and standing up to go around the other side of the car. At that point she states she does not really remember what happened but it happened very fast and she went down onto the pavement onto her right side. She had immediate pain in the right hip and groin and was unable to bear weight on the right lower extremity. She denies loss of consciousness. She denies shortness of breath, chest pain, lightheadedness prior to or after the fall. An ambulance was called and she was taken to [facility]. There x-rays were taken as well as CT scans and it was found that she had a right intertrochanteric hip fracture. There was no orthopedic surgeon guide excursion at that time and she was then transferred to [facility] we [facility] been asked to take care of her hip fracture. Allergies Allergy/AdvReac Type Severity Reaction Status Date / Time lisinopril AdvReac Mild cough Verified 09/11/16 08:25 Home Medications Home Medications Medication Instructions Recorded Confirmed Type apixaban [Eliquis] 5 mg PO BID 08/06/18 08/06/18 History aspirin 81 mg PO DAILY 08/06/18 08/06/18 History atorvastatin 40 mg PO HS 08/06/18 08/06/18 History canagliflozin [Invokana] 100 mg PO DAILY 08/06/18 08/06/18 History cyanocobalamin (vitamin B-12) 1,000 mcg PO DAILY 08/06/18 08/06/18 History donepezil 10 mg PO DAILY 08/06/18 08/06/18 History dulaglutide [Trulicity] 0.75 mg SUBCUT WK 08/06/18 08/06/18 History insulin glargine [Basaglar KwikPen 24 unit SUBCUT HS 08/06/18 08/06/18 History U-100 Insulin] losartan 25 mg PO DAILY 08/06/18 08/06/18 History metformin 1,000 mg PO BID 08/06/18 08/06/18 History metoprolol succinate 25 mg PO DAILY 08/06/18 08/06/18 History mirabegron [Myrbetriq] 25 mg PO DAILY 08/06/18 08/06/18 History ktkhmpyq-fyp-QL-lycopen-lutein 1 tab PO DAILY 08/06/18 08/06/18 History [Centrum Silver] Patient History Medical History Mild dementia (Chronic) History of hysterectomy (Chronic) Chronic anemia (Chronic) CAD (coronary artery disease) (Chronic) 05/2016-cardiac cath showed mild to moderate nonobstructive CAD Hypertension (Chronic) Atrial flutter (Chronic) CKD (chronic kidney disease), stage III (Chronic) DM type 2 (diabetes mellitus, type 2) (Chronic) Surgical History History of arthroscopy of right shoulder (Chronic) History of cataract surgery (Chronic) History of appendectomy (Chronic) H/O carpal tunnel repair (Chronic) Family History Father Lung disease Social History Preferred Language: Austrian Communication Ability: Effective First Assist Required: No Beliefs That Will Affect Care: Voodoo marital status: Current Living Situation: Spouse Other Information That Helps Us Care for You: No Feels Safe at Home: Yes Safety Concerns: Feels Safe At This Time Smoking Status: Never smoker Hx Alcohol Use: No Hx Substance Use: No Review of Systems Review of Systems: All systems reviewed & are unremarkable except as noted in HPI & below Constitutional: as per Subjective / HPI Physical Exam Physical Exam: On examination the patient is well-developed, well-nourished, white female who is alert and oriented to person and place. She appears comfortable at this time and is in no acute distress. Pleasant and cooperative. Focusing the exam on her right lower extremity, it is mildly shortened and externally rotated compared to the left. No range of motion of the hip was done at this time due to fracture but she does have discomfort with mild internal/ex ternal rotation. She denies any right knee pain at this time and no range of motion is done with the knee due to hip fracture. She has good range of motion of her right ankle and toes and has good sensation. She denies any discomfort in the left lower extremity and is nontender at the hip knee and ankle. Range of motion within normal limits. Distal pulses are equal bilaterally of the lower extremities. Upper extremities are unaffected. She initially had right elbow pain upon impact but at this point in time, she has good range of motion, no areas of abrasions or bruising, and no pain on palpation. She is nontender the shoulders elbows and wrists and has good range of motion of all. She denies neck pain on palpation. She is having some lower back pain since the fall. Currently I cannot reproduce the back pain on palpation. She denies any radiculopathy down into the lower extremities and the pain in her lower back is not as bad as it was. Distal pulses of the upper extremities are equal bilaterally. She has no gross motor or sensory loss seen at this time. RLE NVSI +EHL/FHL/TA/GS SILT grossly, +2 DP pulse, compartments soft NT Constitutional: WD/WN, vitals as above Results & Data Vital Signs (Past 12 Hours) Vital Signs Temp Pulse Pulse Resp BP Pulse Ox Pulse Ox 08/07/18 07:53 36.9 C 81 18 131/63 93 08/07/18 05:13 94 08/06/18 23:45 94 08/06/18 23:27 36.6 C 82 14 131/65 94
[2018-08-07] MEDS ORDERED: PHENYLEPHRINE 100MCG/ML 5ML SYR IV PRN (11:44)
[2018-08-07] MEDS ORDERED: fentaNYL citrate 100 MCG/2 ML VIAL IV PRN (11:44)
[2018-08-07] MEDS ORDERED: MEPERIDINE HCL 25 MG/ML CARP IV PRN (11:44)
[2018-08-07] MEDS ORDERED: ATROPINE SULFATE 0.1 MG/ML 10ML SYR IV PRN (11:44)
[2018-08-07] MEDS ORDERED: HYDROmorphone INJ 1 MG/ML SYRINGE IV PRN (11:44)
[2018-08-07] MEDS ORDERED: LABETALOL HCL IV 5 MG/ML 20ML IV PRN (11:44)
[2018-08-07] MEDS ORDERED: ePHEDrine sulfate 50 MG/ML AMP IV PRN (11:44)
[2018-08-07] MEDS ORDERED: HYDROmorphone INJ 2 MG/ML SYR/VIAL ONE (11:51)
[2018-08-07] MEDS ORDERED: BUPIVACAINE/EPINEPHRINE 0.5% MPF 1:200,000 30 ML VIAL ONE (12:27)
--- NOTE | 2018-08-07 12:28 | History & Physical Bridge Note ---
Date of Service August 07, 2018 History & Physical Bridge Note I have examined the patient, reviewed the History & Physical and in the interval since the performance of the History & Physical I have noted the following changes of clinical significance: no changes noted
[2018-08-07] MEDS ORDERED: CEFAZOLIN 2000MG 2,000 MG/15 ML SYR IV ONE (12:30)
--- NOTE | 2018-08-07 13:43 | Post Operative Brief Note ---
Immediate Post Op Note v1 Date of Surgery August 07, 2018 Pre & Post Diagnosis Operation Date: 08/07/18 07:10 Pre-Op Diagnosis: RIGHT HIP FRACTURE Post-Op Diagnosis: RIGHT HIP FRACTURE Procedure Operation Date: 08/07/18 07:10 Actual Procedures p Closed Reduction Internal Fixation Right Hip with Cephalomedullary Nail(Right) - Luis Felipe Miller DO Surgeon Luis Felipe Miller DO Card Runner none Estimated Blood Loss 45 Findings Consistent with Post-Op Diagnosis Fluids 700 cc LR Specimens none Anesthesia Type General Complications none Disposition Disposition: Recovery Room Overlapping Procedure I was present for: the critical portions of procedure. I was immediately available: during the entire case. Back up surgeon: was not required during procedure.
--- NOTE | 2018-08-07 13:58 | Operative Report ---
Post Operative Report Pre & Post Diagnosis Operation Date: 08/07/18 07:10 Pre-Op Diagnosis: RIGHT HIP FRACTURE Post-Op Diagnosis: RIGHT HIP FRACTURE Procedure Operation Date: 08/07/18 07:10 Actual Procedures p Closed Reduction Internal Fixation Right Hip with Cephalomedullary Nail(Right) - Luis Felipe Miller DO Surgeon Luis Felipe Miller DO Band Attacher none Estimated Blood Loss 45 Findings Consistent with Post-Op Diagnosis Fluids 700 cc LR Specimens None Anesthesia Type General Complications none Indications The patient is a 77yo female with displaced right intertrochanteric hip fracture sustained after a fall from standing height. The patient was medically stabilized on 08/07/2018. I indicated the patient for right hip cephalomedullary nail. The patient and family was informed of the risks and benefits of surgery, which include but not limited to infection, bleeding, blood clots, damage to nerves, vessels, bone and soft tissue, dislocation, leg length discrepancy, malunion, nonunion, failure of the implants, need for additional surgery and . The patient and family collectively chose to proceed with surgical intervention and informed consent was obtained. Description of Procedure Following induction of adequate general anesthesia, the patient was placed on the fracture table. The left leg was placed in the well leg elizabeth and the right leg in the traction leg elizabeth. All bony prominences were protected. Utilizing c-arm fluoroscopy closed reduction of the fracture was performed. Once satisfied with fracture reduction the right hip was prepped and draped in the usual sterile manner. A time out was performed and site verified. The incision was made from the tip of the greater trochanter proximally. Subcutaneous tissue was sharply dissected to the tip of the greater trochanter, electrocautery used for hemostasis. Under fluoroscopic guidance the drill tipped guidewire was inserted at the tip of the greater trochanter and advanced into the medullary canal. Utilizing the intramedullary drill the guidewire was overdrilled with tissue protector attached. A 10 mm short Synthes TFN was inserted and impacted into position and confirmed by c-arm fluoroscopy. Next the aiming arm was attached to the insertion handle. A incision was made and carried down through subcutaneous tissues to bone. The blade guide sleeve was inserted and secured down to bone. The guide wire was passed across the fracture site to the tip of the femoral head, position was confirmed in the AP and lateral planes utilizing c-arm fluoroscopy. The guide pin was measured and the 11.0mm drill bit passed over the guide pin to open lateral cortex followed by a 6.0mm/10.0mm cannulated reamer to a depth of 95 mm. Next the helical blade was inserted and locked proximally. Traction was released and interfragmentary compression applied. Distally a stab incision was made in the skin and carried down to bone. The triple trocar assembly was inserted into the aiming guide to bone. Utilizing a 4.0mm drill, both cortices were drilled. The nail was locked distally using a single 4.9mm x 36 mm locking bolt. The aiming guide was removed at this time and final radiographs were obtained utilizing c-arm fluoroscopy to confirm overall position and fracture reduction. Incisions were irrigated with copious amounts of sterile saline solution. Subcutaneous tissue were injected utilizing .5% marcaine with epi. Deep closure was performed using #1 Vicryl followed by 2-0 Vicryl for subcutaneous tissues and ray in the skin. Sterile dressing, Xeroform gauze, 4x4s and tegaderm were applied. The patient tolerated the procedure well and was transported to the PACU in stable condition. I attest to the content of the Intraoperative Record and any orders documented therein. Any exceptions are noted below.
--- NOTE | 2018-08-07 14:27 | XRay Report ---
XR hip RT min 2V CLINICAL HISTORY: 77 years-old Female presenting with Post-Operative implant position. TECHNIQUE: Frontal and crosstable lateral views of the right hip were obtained. COMPARISON: 08/06/2018. FINDINGS: There has been interval intramedullary nail fixation of the right femoral neck and proximal metadiaph ysis with distal interlocking screw and better appreciated on the current exam is the presence of a b asicervical right femoral neck fracture. The fracture plane extends through the lesser trochanter acc ounting for the displaced lesser trochanteric fracture fragment. The absence of a visualized underlyi ng pathologic lesion associated with the donor site for the lesser trochanter is understandable given the basicervical femoral neck fracture. Trace proximal displacement of the distal fracture fragment relative to the neck resulting in cortica l offset medially of 5 mm that was not apparent on the prior exam. Expected postsurgical soft tissue emphysema. Overlying skin ray. Right femoral head remains congruent in the acetabulum. Visualized portion of bony pelvis intact. Atherosclerosis. IMPRESSION: Interval intramedullary nail fixation of the basicervical right femoral neck fracture. Alignment is l ikely within the range of what is expected postsurgically. No hardware complication. Electronically signed by: Shlomo Demarco M.D. 08/07/2018 2:26 PM
--- NOTE | 2018-08-07 14:34 | Fluoroscopy Report ---
FL hip RT 2-3V CLINICAL HISTORY: RIGHT TROCH NAIL COMPARISON STUDY: 08/06/2017 FLUOROSCOPY TIME: 1 minute 22 seconds NUMBER OF FLUOROSCOPIC IMAGES: 4 FINDINGS: Image intensifier utilized for intraoperative right hip IMPRESSION: Image intensifier utilized for intraoperative right hip nailing procedure The above report was generated using voice recognition software. It may contain grammatical, syntax or spelling errors. Electronically signed by: Juan Chauhan M.D. 08/07/2018 2:33 PM
--- NOTE | 2018-08-07 14:55 | Anesthesiology Progress Note ---
Date of Service August 07, 2018 Anesthesia Post Procedure Vital Signs Vital Signs: Temp Pulse Pulse Resp BP Pulse Ox Pulse Ox 08/07/18 14:50 83 15 144/79 H 93 08/07/18 14:40 77 16 164/76 H 100 08/07/18 14:30 36.4 C L 75 21 184/70 H 99 08/07/18 14:20 77 19 164/73 H 99 08/07/18 14:10 73 13 163/78 H 100 08/07/18 14:00 78 17 172/80 H 100 08/07/18 13:51 36.6 C 82 17 156/69 H 97 08/07/18 11:34 36.3 C L 80 18 146/75 H 98 08/07/18 07:53 36.9 C 81 18 131/63 93 08/07/18 05:13 94 08/06/18 23:45 94 08/06/18 23:27 36.6 C 82 14 131/65 94 08/06/18 17:32 36.6 C 87 18 148/71 H 91 Pain Intensity Right Hip: Pain Intensity: 0 Transfer of Care Handoff Completed per policy Notes Mental Status: alert / awake / arousable Patient Amnestic to Procedure: Yes Nausea / Vomiting: adequately controlled Pain: adequately controlled Airway Patency, RR, SpO2: stable & adequate BP & HR: stable & adequate Hydration State: stable & adequate Anesthetic Complications: no major complications apparent and Pt Satisfied with anesthetic care Notes: The patient is stable and awake at baseline.
--- NOTE | 2018-08-07 14:56 | Orthopedic Progress Note ---
Date of Service August 07, 2018 Assessment & Plan (1) Closed right hip fracture: Status post closed reduction internal fixation right hip short cephalo- medullary nail -Ancef x24 -DVT prophylaxis SCDs/teds, will restart Eliquis postop day #1 -Partial weightbearing right lower extremity -PT/OT -Postoperative x-ray demonstrates a well aligned well fixed orthopedic implant without new fracture or dislocation -A.m. labs Subjective Post Operative Progress Note Patient seen in PACU, comfortable, denies complaints, pain well controlled, no acute issues. Still waking up from general anesthesia. Review of Systems Review of Systems: All systems reviewed & are unremarkable except as noted in HPI & below Constitutional: as per Subjective / HPI Physical Exam Physical Exam: RLE NVSI +EHL/FHL/TA/GS SILT grossly, +2 DP pulse, compartments soft NT, dressing cdi. Constitutional: WD/WN, vitals as above Results & Data Vital Signs (Past 12 Hours) Vital Signs Temp Pulse Resp BP Pulse Ox Pulse Ox 08/07/18 14:50 83 15 144/79 H 93 08/07/18 14:40 77 16 164/76 H 100 08/07/18 14:30 36.4 C L 75 21 184/70 H 99 08/07/18 14:20 77 19 164/73 H 99 08/07/18 14:10 73 13 163/78 H 100 08/07/18 14:00 78 17 172/80 H 100 08/07/18 13:51 36.6 C 82 17 156/69 H 97 08/07/18 11:34 36.3 C L 80 18 146/75 H 98 08/07/18 07:53 36.9 C 81 18 131/63 93 08/07/18 05:13 94
[2018-08-07] MEDS ORDERED: HYDROmorphone INJ 0.5 MG/0.5 ML SYR IV PRN (15:34)
[2018-08-07] MEDS ORDERED: COUGH DROP (SUGAR FREE) LOZ 24 LOZ/1 BOX LOZ PRN (15:34)
[2018-08-07] MEDS ORDERED: NALOXONE HCL 0.4 MG/1 ML VIAL/CARP IV PRN (15:34)
[2018-08-07] MEDS: SODIUM CHLORIDE 0.9% 1000ML 1,000 ML IV SCH (16:49)
[2018-08-07] MEDS ORDERED: cefTRIAXone SODIUM 1,000 MG in DEXTROSE 5% 50 ML IV SCH (18:00)
--- NOTE | 2018-08-07 18:10 | Hospitalist Progress Note ---
Date of Service August 07, 2018 Assessment & Plan (1) Closed right hip fracture: Right hip fracture after a mechanical fall S/P Closed Reduction Internal Fixation Right Hip with Cephalomedullary Nail POD #0 Appreciate Orthopedics help Monitor CBC DVT Px: SCDs for now--Plan to restart eliquis tmw Partial weightbearing right lower extremity PT/OT Nonobstructive CAD Echocardiogram 06/2017-EF 65 to 69%, no significant valvular disease Continue aspirin, statin, beta-fracisco (2) Atrial flutter: Currently in Sinus Continue metoprolol Resume Eliquis as able (3) CKD (chronic kidney disease), stage III: baseline creat ~ 1.0 Monitor renal function (4) DM type 2 (diabetes mellitus, type 2): Hgb A1c 8.5 05/2018 Hold oral agents and Trulicity Continue ISS, Lantus (5) Hypertension: BP Stable Continue metoprolol, losartan (6) Chronic anemia: Baseline hemoglobin ~ 10-11 Monitor CBC (7) Mild dementia: Continue Aricept (8) DVT prophylaxis: SCDs for now Subjective Patient is seen and examined post operatively Currently lethargic States leg pain at surgical site is controlled Denies chest pain, SOB, dizziness, dysuria Family at bedside Offers no other complaints Review of Systems Review of Systems: All systems reviewed & are unremarkable except as noted in HPI & below Physical Exam Physical Exam: Physical Exam: Vitals signs as noted above General Appearance:Moderately built and nourished, no apparent distress Head: normocephalic, Atraumatic Eyes: normal inspection, EOMI Neck: supple, Trachea midline Respiratory/Chest: Normal breath sounds, CTA Cardiovascular: S1, S2, No murmur Abdomen/GI:Soft, Non tender, Bowel sounds present Extremities/Musculoskelatal:normal inspection, no edema, Right hip surgical site in dressing Neurologic/Psych:grossly no focal neurological deficits Skin: normal color, warm Results & Data Vital Signs (Past 12 Hours) Vital Signs Temp Pulse Pulse Resp BP Pulse Ox 08/07/18 17:49 36.2 C L 70 18 154/76 H 94 08/07/18 16:23 36.5 C 66 18 153/73 H 97 08/07/18 15:57 36.5 C 74 18 151/73 H 95 08/07/18 15:10 78 15 141/76 H 98 08/07/18 15:00 75 16 138/68 93 08/07/18 14:50 83 15 144/79 H 93 08/07/18 14:40 77 16 164/76 H 100 08/07/18 14:30 36.4 C L 75 21 184/70 H 99 08/07/18 14:20 77 19 164/73 H 99 08/07/18 14:10 73 13 163/78 H 100 08/07/18 14:00 78 17 172/80 H 100 08/07/18 13:51 36.6 C 82 17 156/69 H 97 08/07/18 11:34 36.3 C L 80 18 146/75 H 98 08/07/18 07:53 36.9 C 81 18 131/63 93 Laboratory Results Short CBC 08/06/18 08/07/18 Range/Units 18:09 07:59 WBC 16.24 H 15.10 H (4.8-10.8) K/uL Hgb 10.2 L 10.3 L (12.0-16.0) g/dL Hct 30.7 L 30.8 L (37-47) % Plt Count 272 300 (130-400) K/uL BMP 08/06/18 08/07/18 18:09 07:59 Sodium 138 138 Potassium 3.8 3.8 Chloride 104 104 Carbon Dioxide 25 27 BUN 18 18 Creatinine 0.89 0.97 Glucose 246 H 176 H Calcium 9.5 9.2 Liver Function 08/06/18 Range/Units 18:09 Total Bilirubin 0.3 (0.2-1) mg/dl AST 12 L (15-37) U/L ALT 17 (12-78) U/L Alkaline Phosphatase 152 H (45-117) U/L Albumin 3.1 L (3.4-5.0) gm/dl Urine 08/06/18 Range/Units 21:15 Urine Color Yellow Urine Appearance Clear (Clear) Urine pH 5.0 (4.5-7.5) Ur Specific [place] 1.040 H (1.000-1.030) Urine Protein Negative (Negative) Urine Glucose (UA) 3+ H (Negative)
[2018-08-07] MEDS ORDERED: INSULIN GLARGINE SOLOSTAR 100 UNITS/ML 3 ML PEN SQ STA (21:31)
[2018-08-07] MEDS: ATORVASTATIN 40 MG TAB PO SCH (22:01)
[2018-08-07] MEDS: DOCUSATE SODIUM/SENNA 50/8.6MG TAB PO SCH (22:03)
[2018-08-08 02:07] LABS: Basophils # (auto) 0.01 K/uL (0-0.2); Basophils % (auto) 0.1 %; Eosinophils # (auto) 0.01 K/uL (0-0.5); Eosinophils % (auto) 0.1 %; Hematocrit (blood only) 24.6 % (37-47); Hemoglobin 8.4 g/dL (12.0-16.0); Immature Granulocytes # (auto) 0.06 K/uL (0.00-0.02); Immature Granulocytes % (auto) 0.3 %; Lymphocytes # (auto) 1.21 K/uL (1.2-3.4); Lymphocytes % (auto) 6.9 %; Mean Corpuscular Hgb Conc 34.1 g/dL (32-36); Mean Corpuscular Volume 81.5 fL (80-100); Mean Platelet Volume 9.8 fL (7.4-10.4); Monocytes % (auto) 9.1 %; Neutrophils # (auto) 14.62 K/uL (1.4-6.5); Neutrophils % (auto) 83.5 %; Platelet Count 278 K/uL (130-400); RDW Coefficient of Variation 14.3 % (11.5-14.5); RDW Standard Deviation 43.2 fL (36.4-46.3); Red Blood Count 3.02 M/uL (4.2-5.4); White Blood Count 17.51 K/uL (4.8-10.8)
[2018-08-08 02:26] LABS: Albumin Level 2.6 gm/dl (3.4-5.0); Calcium 8.2 mg/dl (8.5-10.1); Creatinine Clr Calc Pharmacy 45.4 ml/min; Est GFR (African American) 64.2; Est GFR (Non-African American) 55.4; Magnesium 1.8 mg/dl (1.8-2.4); Potassium 4.1 mmol/L (3.5-5.1)
[2018-08-08 02:37] LABS: Albumin Globulin Ratio 0.7 (0.9-2); Bilirubin,Total 0.3 mg/dl (0.2-1); Globulin 3.9 gm/dl (2.5-4.0); Total Protein 6.5 gm/dl (6.4-8.2)
[2018-08-08] MEDS ORDERED: MAGNESIUM SULFATE / D5W 1 GM/100 ML BAG IV ONE (04:52)
[2018-08-08] MEDS: SODIUM CHLORIDE 0.9% 1000ML 1,000 ML IV SCH (04:53)
[2018-08-08] MEDS ORDERED: ALBUMIN 25% 50 ML IV ONE (04:57)
--- NOTE | 2018-08-08 05:05 | Hospitalist Progress Note ---
Date of Service August 08, 2018 Subjective Made aware by RN of cardiac rate 140s. SBP 100-110s. Episodic confusion last night as per daughter. EKG as per my interpretation : Rate 140, sinus tachycardia, right bundle branch block WBC 17 AP Tachycardia, possible sepsis secondary to complicated UTI Gram-negative makenna on preliminary results CS Cultures, check lactic acid IVF Change IV Ceftriaxone to IV Cefepime for now for broader gram-negative coverage. Follow final urine CS facilitate a.m. beta-fracisco May need transfer to telemetry if heart rate uncontrolled following intervention. Will relay to AM provider. Results & Data Vital Signs (Past 12 Hours) Vital Signs Temp Pulse Pulse Pulse Resp BP Pulse Ox 08/08/18 04:56 126 H 08/08/18 04:48 144 H 114/63 08/08/18 04:25 140 H 08/08/18 04:19 36.8 C 143 H 16 123/77 94 08/08/18 00:13 36.9 C 73 15 114/56 L 90 08/08/18 00:10 08/07/18 19:58 36.5 C 80 16 129/64 95 08/07/18 18:33 36.3 C L 68 16 149/75 H 100 08/07/18 17:49 36.2 C L 70 18 154/76 H 94 Pulse Ox 08/08/18 04:56 08/08/18 04:48 08/08/18 04:25 08/08/18 04:19 08/08/18 00:13 08/08/18 00:10 89 L 08/07/18 19:58 08/07/18 18:33 08/07/18 17:49
[2018-08-08] MEDS ORDERED: CEFEPIME 2,000 MG in SYRINGE 7.5 ML IV STA (05:31)
[2018-08-08] MEDS ORDERED: CEFEPIME CONSULT ACTIVE PRN (05:32)
[2018-08-08] MEDS: METOPROLOL SUCC 25MG EXT REL TAB PO SCH (05:34)
[2018-08-08] MEDS ORDERED: SODIUM CHLORIDE 0.9% 500 ML IV ONE (06:27)
[2018-08-08] MEDS ORDERED: METOPROLOL TARTRATE 25 MG TAB PO STA (06:30)
[2018-08-08] MEDS ORDERED: SODIUM CHLORIDE 0.9% 1000ML 500 ML IV ONE (06:44)
--- NOTE | 2018-08-08 07:25 | XRay Report ---
XR chest 1V portable CLINICAL HISTORY: 77 years-old Female presenting with low o2. TECHNIQUE: Portable upright AP view of the chest was obtained. COMPARISON: 08/06/2018. FINDINGS: Atherosclerosis of the aortic arch. Cardiac silhouette is now normal in size. Decreased pulmonary vas cular prominence and bronchial wall cuffing. Decreased prominence of interstitial lung markings. No n ew focal opacity. Trace pleural effusions may still be present. No large pneumothorax. Degenerative c hanges of the thoracic spine. Underlying osteopenia. Chronic right AC joint separation. Upper abdomen normal. IMPRESSION: 1. Decreased volume overload and congestive change. 2. Trace pleural effusions may still be present. Electronically signed by: Shlomo Demarco M.D. 08/08/2018 7:24 AM
[2018-08-08] MEDS: ACETAMINOPHEN 325 MG TAB PO PRN ×3 (07:38→18:11)
--- NOTE | 2018-08-08 08:25 | Orthopedic Progress Note ---
Date of Service August 08, 2018 Assessment & Plan (1) Closed right hip fracture: Postop day 1 status post right TFN. Begin PT and OT protocols. Partial weightbearing at this time of the right lower extremity. DVT prophylaxis with SCDs, REYNA hose, and Eliquis twice daily. Continue current pain management. Consider use of tramadol p.o. if IV pain meds no longer desired. Patient on Rocephin Patient seen and examined, agree with above assessment and plan. Subjective Postop day 1 status post right TFN. Patient is awake and alert this morning. Her daughter is with her. The patient states that she feels a bit sluggish this morning. She does not complain of pain at this point in time and denies any shortness of breath or chest pain. She states she is continuing to keep her ice pack on the wound. Nursing stated that the patient was having runs of tachycardia into the 140s last night but with a recent check, she is currently at 73 bpm. Review of Systems Review of Systems: All systems reviewed & are unremarkable except as noted in HPI & below Constitutional: as per Subjective / HPI Physical Exam Physical Exam: Dressings are clean, dry, and intact. Thigh has some swelling but is soft and nontender. Calves are soft, nontender. Neurovascular is intact. Toes are mobile. LLE NVSI +EHL/FHL/TA/GS SILT grossly, +2 DP pulse, compartments soft NT, dressing cdi. Results & Data Vital Signs (Past 12 Hours) Vital Signs Temp Pulse Pulse Pulse Resp BP BP 08/08/18 08:14 36.9 C 73 20 110/68 08/08/18 07:22 36.8 C 134 H 18 117/71 08/08/18 06:29 37.1 C 147 H 16 104/67 08/08/18 04:56 126 H 08/08/18 04:48 144 H 114/63 08/08/18 04:25 140 H 08/08/18 04:19 36.8 C 143 H 16 123/77 08/08/18 00:13 36.9 C 73 15 114/56 L 08/08/18 00:10 Pulse Ox Pulse Ox 08/08/18 08:14 95 08/08/18 07:22 96 08/08/18 06:29 95 08/08/18 04:56 08/08/18 04:48 08/08/18 04:25 08/08/18 04:19 94 08/08/18 00:13 90 08/08/18 00:10 89 L
[2018-08-08] MEDS: CYANOCOBALAMIN 500 MCG TABLET (VITAMIN B-12) PO SCH (08:58)
[2018-08-08] MEDS: CEROVITE ADV FORMULA TAB PO SCH (08:58)
[2018-08-08] MEDS: DONEPEZIL HCL 10 MG TAB PO SCH (08:58)
[2018-08-08] MEDS: ASPIRIN 81 MG ECTAB PO SCH (08:59)
[2018-08-08] MEDS: LOSARTAN POTASSIUM 25 MG TAB PO SCH (08:59)
[2018-08-08] MEDS: APIXABAN 5 MG TABLET PO SCH ×2 (09:00→21:26)
[2018-08-08] MEDS: CHOLECALCIFEROL 1,000 UNITS TAB PO SCH (09:00)
[2018-08-08] MEDS: INSULIN ASPART 100 UNITS/ML 3 ML PEN SC SCH ×4 (09:09→21:30)
[2018-08-08] MEDS ORDERED: INSULIN GLARGINE SOLOSTAR 100 UNITS/ML 3 ML PEN SQ SCH (10:30)
--- NOTE | 2018-08-08 12:23 | Anesthesiology Progress Note ---
Date of Service August 08, 2018 Anesthesia Post Procedure Vital Signs Vital Signs: Temp Pulse Pulse Pulse Resp BP BP 08/08/18 08:14 36.9 C 73 20 110/68 08/08/18 07:22 36.8 C 134 H 18 117/71 08/08/18 06:29 37.1 C 147 H 16 104/67 08/08/18 04:56 126 H 08/08/18 04:48 144 H 114/63 08/08/18 04:25 140 H 08/08/18 04:19 36.8 C 143 H 16 123/77 08/08/18 00:13 36.9 C 73 15 114/56 L 08/08/18 00:10 08/07/18 19:58 36.5 C 80 16 129/64 08/07/18 18:33 36.3 C L 68 16 149/75 H 08/07/18 17:49 36.2 C L 70 18 154/76 H 08/07/18 16:23 36.5 C 66 18 153/73 H 08/07/18 15:57 36.5 C 74 18 151/73 H 08/07/18 15:25 36.6 C 78 16 150/51 H 08/07/18 15:10 78 15 141/76 H 08/07/18 15:00 75 16 138/68 08/07/18 14:50 83 15 144/79 H 08/07/18 14:40 77 16 164/76 H 08/07/18 14:30 36.4 C L 75 21 184/70 H 08/07/18 14:20 77 19 164/73 H 08/07/18 14:10 73 13 163/78 H 08/07/18 14:00 78 17 172/80 H 08/07/18 13:51 36.6 C 82 17 156/69 H Pulse Ox Pulse Ox 08/08/18 08:14 95 08/08/18 07:22 96 08/08/18 06:29 95 08/08/18 04:56 08/08/18 04:48 08/08/18 04:25 08/08/18 04:19 94 08/08/18 00:13 90 08/08/18 00:10 89 L 08/07/18 19:58 95 08/07/18 18:33 100 08/07/18 17:49 94 08/07/18 16:23 97 08/07/18 15:57 95 08/07/18 15:25 92 08/07/18 15:10 98 08/07/18 15:00 93 08/07/18 14:50 93 08/07/18 14:40 100 08/07/18 14:30 99 08/07/18 14:20 99 08/07/18 14:10 100 08/07/18 14:00 100 08/07/18 13:51 97 Pain Intensity Right Hip: Pain Intensity: 0 Notes Mental Status: alert / awake / arousable and participated in evaluation Patient Amnestic to Procedure: Yes Nausea / Vomiting: adequately controlled Pain: adequately controlled Airway Patency, RR, SpO2: stable & adequate BP & HR: stable & adequate Hydration State: stable & adequate Anesthetic Complications: no major complications apparent and Pt Satisfied with anesthetic care
[2018-08-08] MEDS ORDERED: PHARMACY GLYCEMIC MGMT CONSULT PRN (12:40)
--- NOTE | 2018-08-08 13:12 | Pharmacy Report ---
Glycemic Control Consultation - Date of Service August 08, 2018 - Scope Scope: Glycemic Pharmacist consulted by Dr Vanegas on 08/08/18 for glycemic control and to write orders per formerly [facility] inpatient glycemic control protocol - Objective Weight: 73.51 kg Accuchecks BSG (last 24hrs): 08/07/18 08/07/18 08/07/18 13:58 16:40 21:21 Glucose POC Glucose 159 H 268 H 317 H* 08/07/18 08/08/18 08/08/18 21:24 01:41 01:55 Glucose 198 H POC Glucose 338 H* 222 H 08/08/18 08:13 Glucose POC Glucose 212 H current BSG = 313mg/dl prior to lunch today Laboratory Data (last 24hrs): 08/08/18 01:55 Potassium 4.1 Carbon Dioxide 27 Anion Gap 7.0 Creatinine 0.99 Est Cr Clr Drug Dosing 45.4 - Recent Pertinent Medications Outpatient Anti-diabetic Regimen: * Insulin glargine 24 units HS * Metformin 1g PO BID * Canagliflozin 100mg PO Daily * Dulaglutide 0.75mg SQ Qweek * A1c ordered with AM labs The patient is currently receiving: * Basal insulin: Lantus 20 units every 24 hours * Correctional Insulin: Novolog Correction per scale ACHS Goal Range: Low 110 mg/dL - High 140 mg/dL Correction Factor: 25 mg/dL/unit * Prandial insulin: Per carb ratio of 1 unit per 10 grams CHO consumed * Oral Agents: on hold Risk Factors for Insulin Resistance: * Infection: Cefepime for possible sepsis, UTI * Recent Surgery: POD1 right TFN * Diet: Type 2 DM - Assessment & Plan Assessment & Plan: ASSESSMENT: * 77 yo female admitted s/p fall, Postop day 1 status post right TFN. Type 2 Diabetic as outpatient, unknown control. * A1c with AM Labs * Patient on IV Cefepime for EColi UTI, procal negative, WBC still increasing, Dr Vanegas would like to keep Cefepime on at this time. * Patient received 43 units of insulin yesterday with blood sugars in the 200- 300 range. * Blood sugar prior to lunch = 313mg/dl - pharmacy consulted for glycemic control. * I will give patient now dose of home dose of insulin glargine, and resume HS dosing tomorrow - patient may need additional dose tomorrow morning based on BSGs and an increase in TDD tomorrow night. * I will tighten CF and CR for better glycemic control. * ADA & AACE recommend a goal blood sugar range 140-180 mg/dl for the majority of critically ill & non-critically ill patients. However, more stringent targets may be selected in individual cases. Will utilize more stringent goal of 110-140mg/dl based on patient age & comorbidities. Additionally, tighter glycemic control is warranted to facilitate wound/infection healing. * Pt is maintained on oral antidiabetic agents as an outpatient * Oral agents are not recommended for inpatient use d/t drug interactions, changing PO intake, and difficulty titrating for acute hyper/hypoglycemia. ADA recommends re-initiating outpatient oral agents 1-2 days prior to discharge if/when appropriate if they were held on admission. PLAN FOR INPATIENT GLYCEMIC CONTROL: * Holding outpatient oral diabetes medications * Basal insulin * Lantus 24 units SQ x 1 dose now, then HS starting tomorrow * Bolus insulin * NovoLog per scale ACHS or Q6hrs while NPO * Goal Range: Low 110 mg/dL - High 140 mg/dL * TIGHTEN: Correction Factor: 15 mg/dL/unit * TIGHTEN: Nutritional / Prandial insulin per carb ratio of 1 unit per 5 grams CHO consumed * Please note that the plan above was derived based on current level of insulin resistance and hospital stress. These recommendations are appropriate for inpatient admission only. Plan of care upon discharge will need to be reassessed to avoid potential outpatient hypo/hyperglycemia. Thank you.
--- NOTE | 2018-08-08 18:44 | Hospitalist Progress Note ---
Date of Service August 08, 2018 Assessment & Plan (1) Closed right hip fracture: Right hip fracture after a mechanical fall S/P Closed Reduction Internal Fixation Right Hip with Cephalomedullary Nail POD #1 Appreciate Orthopedics help Monitor CBC DVT Px: restarted eliquis Partial weightbearing right lower extremity PT/OT Nonobstructive CAD Echocardiogram 06/2017-EF 65 to 69%, no significant valvular disease Continue aspirin, statin, beta-fracisco UTI: Urine Culture: Pansensitive E.coli Blood Culture: No growth to date Continue Cefepime De-escalate Abx as able (2) Atrial flutter: Currently in Sinus Continue metoprolol Continue Eliquis (3) CKD (chronic kidney disease), stage III: baseline creat ~ 1.0 Monitor renal function (4) DM type 2 (diabetes mellitus, type 2): Hgb A1c 8.5 05/2018 Hold oral agents and Trulicity Continue ISS, Lantus (5) Hypertension: BP Stable Continue metoprolol, losartan (6) Chronic anemia: Baseline hemoglobin ~ 10-11 Monitor CBC (7) Mild dementia: Continue Aricept (8) DVT prophylaxis: Eliquis Disposition: Needs Rehab placement Subjective Patient is seen and examined post operatively Alert awake this morning Patient was tachycardic overnight which improved with IV fluids Urine culture growing pansensitive E. coli leg pain is controlled Denies chest pain, SOB, dizziness, dysuria Family at bedside Offers no other complaints Review of Systems Review of Systems: All systems reviewed & are unremarkable except as noted in HPI & below Physical Exam Physical Exam: Physical Exam: Vitals signs as noted above General Appearance:Moderately built and nourished, no apparent distress Head: normocephalic, Atraumatic Eyes: normal inspection, EOMI Neck: supple, Trachea midline Respiratory/Chest: Normal breath sounds, CTA Cardiovascular: S1, S2, No murmur Abdomen/GI:Soft, Non tender, Bowel sounds present Extremities/Musculoskelatal:normal inspection, no edema, Right hip surgical site in dressing Neurologic/Psych:grossly no focal neurological deficits Skin: normal color, warm Results & Data Vital Signs (Past 12 Hours) Vital Signs Temp Pulse Pulse Resp BP BP Pulse Ox 08/08/18 14:59 36.7 C 74 16 103/61 100 08/08/18 14:09 36.7 C 73 18 137/67 96 08/08/18 08:14 36.9 C 73 20 110/68 95 08/08/18 07:22 36.8 C 134 H 18 117/71 96
[2018-08-08] MEDS: DOCUSATE SODIUM/SENNA 50/8.6MG TAB PO SCH (21:25)
[2018-08-08] MEDS: ATORVASTATIN 40 MG TAB PO SCH (21:26)
[2018-08-09] MEDS: CEFEPIME 2,000 MG in SYRINGE 7.5 ML IV SCH (05:39)
[2018-08-09] MEDS: POLYETHYLENE (MIRALAX) 17 GM PACK PO SCH ×3 (05:46→20:26)
[2018-08-09] MEDS: ACETAMINOPHEN 325 MG TAB PO PRN (08:03)
[2018-08-09 08:17] LABS: Basophils # (auto) 0.02 K/uL (0-0.2); Basophils % (auto) 0.1 %; Eosinophils # (auto) 0.07 K/uL (0-0.5); Eosinophils % (auto) 0.4 %; Hematocrit (blood only) 23.5 % (37-47); Immature Granulocytes # (auto) 0.09 K/uL (0.00-0.02); Immature Granulocytes % (auto) 0.6 %; Lymphocytes # (auto) 1.56 K/uL (1.2-3.4); Lymphocytes % (auto) 9.8 %; Mean Corpuscular Volume 82.2 fL (80-100); Mean Platelet Volume 9.8 fL (7.4-10.4); Monocytes # (auto) 1.47 K/uL (0.11-0.59); Monocytes % (auto) 9.3 %; Neutrophils # (auto) 12.65 K/uL (1.4-6.5); Neutrophils % (auto) 79.8 %; Platelet Count 280 K/uL (130-400); RDW Coefficient of Variation 14.5 % (11.5-14.5); RDW Standard Deviation 43.9 fL (36.4-46.3); Red Blood Count 2.86 M/uL (4.2-5.4); White Blood Count 15.86 K/uL (4.8-10.8)
[2018-08-09] MEDS ORDERED: SODIUM CHLORIDE 0.9% 1000ML 1,000 ML IV ONE (08:28)
[2018-08-09 08:52] LABS: BUN Creatinine Ratio 20.6 (10-20); Calcium 8.7 mg/dl (8.5-10.1); Creatinine Clr Calc Pharmacy 46.8 ml/min; Est GFR (African American) 66.6; Est GFR (Non-African American) 57.4; Potassium 3.9 mmol/L (3.5-5.1)
[2018-08-09] MEDS: APIXABAN 5 MG TABLET PO SCH ×2 (09:07→20:46)
[2018-08-09] MEDS: DONEPEZIL HCL 10 MG TAB PO SCH (09:07)
[2018-08-09] MEDS: ASPIRIN 81 MG ECTAB PO SCH (09:07)
[2018-08-09] MEDS: LOSARTAN POTASSIUM 25 MG TAB PO SCH (09:07)
[2018-08-09] MEDS: CYANOCOBALAMIN 500 MCG TABLET (VITAMIN B-12) PO SCH (09:08)
[2018-08-09] MEDS: CHOLECALCIFEROL 1,000 UNITS TAB PO SCH (09:08)
[2018-08-09] MEDS: CEROVITE ADV FORMULA TAB PO SCH (09:08)
[2018-08-09] MEDS: METOPROLOL SUCC 25MG EXT REL TAB PO SCH (09:08)
[2018-08-09 09:11] LABS: Estimated Average Glucose 217 mg/dl; Hemoglobin A1C 9.2 % (4.5-5.6)
[2018-08-09] MEDS: INSULIN ASPART 100 UNITS/ML 3 ML PEN SC SCH ×4 (09:11→22:14)
[2018-08-09] MEDS ORDERED: INSULIN GLARGINE SOLOSTAR 100 UNITS/ML 3 ML PEN SC STA (09:28)
--- NOTE | 2018-08-09 09:39 | Pharmacy Report ---
Pharmacy Glycemic Short Note 2 - Date of Service August 09, 2018 - Glycemic Short BSG Results (Last 24 hours): 08/08/18 08/08/18 08/08/18 12:02 17:48 20:38 Glucose POC Glucose 313 H* 209 H 161 H 08/09/18 08/09/18 07:59 08:11 Glucose 222 H POC Glucose 248 H ASSESSMENT: * Ms. Arellano's FBS elevated at 248mg/dL, likely due to basal deficiency. Her outpt glycemic management needs improved as evidenced by her A1C of 9.2%. Based on age and co morbidities a goal A1C of 7.5-8.0% is likely appropriate. Cefepime continues. Diet continues. PLAN FOR INPATIENT GLYCEMIC CONTROL: * Hold outpatient oral diabetes medications * Basal insulin * Lantus 24 units this AM due to severely elevated FBS * one time lantus scale this evening to help cover any underlying basal deficiency, see MAR fo further details * Bolus insulin * NovoLog per scale ACHS or Q6hrs while NPO * Goal Range: Low 110 mg/dL - High 140 mg/dL * Correction Factor: 15 mg/dL/unit * Nutritional / Prandial insulin per carb ratio of 1 unit per 5 grams CHO consumed
--- NOTE | 2018-08-09 11:44 | Orthopedic Progress Note ---
Date of Service August 09, 2018 Assessment & Plan (1) Closed right hip fracture: Postop day 2 status post right TFN. Begin PT and OT protocols. Partial weightbearing at this time of the right lower extremity. DVT prophylaxis with SCDs, REYNA hose, and Eliquis twice daily. Continue current pain management. Patient on Rocephin Discussed review of ER note from [facility] with patient and her daughter. No fx's noted within the CT of the head and neck. Consider PT for neck pain if it persists. Patient seen and examined, agree with above assessment and plan. Subjective Patient is seen and examined post operatively Alert awake this morning leg pain is controlled Denies chest pain, SOB, dizziness, dysuria Family at bedside Main reason for taking any pain meds today is because of neck pain. Review of Systems Review of Systems: All systems reviewed & are unremarkable except as noted in HPI & below Constitutional: as per Subjective / HPI Physical Exam Physical Exam: RLE NVSI +EHL/FHL/TA/GS SILT grossly, +2 DP pulse, compartments soft NT, dressing cdi. Constitutional: WD/WN, vitals as above Musculoskeletal: Hip: + surgical incision (right thigh: dressings clean, dry, intact. Thigh is soft. No tenderness.); hip normal to inspection, no deformity, no skin erythema and no ecchymosis Psychiatric: A+Ox3, euthymic affect Results & Data Vital Signs (Past 12 Hours) Vital Signs Temp Pulse Pulse Resp BP Pulse Ox 08/09/18 08:08 133 H 08/09/18 07:51 36.9 C 155 H 155 H 18 114/76 96
--- NOTE | 2018-08-09 17:06 | Hospitalist Progress Note ---
Date of Service August 09, 2018 Assessment & Plan (1) Closed right hip fracture: Right hip fracture after a mechanical fall S/P Closed Reduction Internal Fixation Right Hip with Cephalomedullary Nail POD #2 Appreciate Orthopedics help Monitor CBC DVT Px: On eliquis Partial weightbearing right lower extremity PT/OT Nonobstructive CAD Echocardiogram 06/2017-EF 65 to 69%, no significant valvular disease Continue aspirin, statin, beta-fracisco UTI: Urine Culture: Pansensitive E.coli Blood Culture: No growth to date Continue Cefepime WBC count trending down (2) Atrial flutter: Currently in Sinus Continue metoprolol Continue Eliquis (3) CKD (chronic kidney disease), stage III: baseline creat ~ 1.0 Monitor renal function (4) DM type 2 (diabetes mellitus, type 2): Hgb A1c 9.2 Hold oral agents and Trulicity Continue ISS, Lantus Pharmacy Glycemic control consult Pharmacy to manage Insulin therapy (5) Hypertension: BP Stable Continue metoprolol, losartan (6) Chronic anemia: Baseline hemoglobin ~ 10-11 Monitor CBC (7) Mild dementia: Continue Aricept (8) DVT prophylaxis: Eliquis Disposition: Needs Rehab placement Subjective Patient is seen and examined post operatively Sitting in chair comfortably Denies any pain at surgical site Tachycardic earlier this morning which currently improved Denies chest pain, SOB, dizziness, dysuria Family at bedside Review of Systems Review of Systems: All systems reviewed & are unremarkable except as noted in HPI & below Physical Exam Physical Exam: Physical Exam: Vitals signs as noted above General Appearance:Moderately built and nourished, no apparent distress Head: normocephalic, Atraumatic Eyes: normal inspection, EOMI Neck: supple, Trachea midline Respiratory/Chest: Normal breath sounds, CTA Cardiovascular: S1, S2, No murmur Abdomen/GI:Soft, Non tender, Bowel sounds present Extremities/Musculoskelatal:normal inspection, no edema, Right hip surgical site in dressing Neurologic/Psych:grossly no focal neurological deficits Skin: normal color, warm Results & Data Vital Signs (Past 12 Hours) Vital Signs Temp Pulse Pulse Resp BP Pulse Ox 08/09/18 15:50 36.6 C 92 H 16 127/64 98 08/09/18 12:52 103 H 08/09/18 08:08 133 H 08/09/18 07:51 36.9 C 155 H 155 H 18 114/76 96 Laboratory Results Short CBC 08/09/18 Range/Units 07:59 WBC 15.86 H (4.8-10.8) K/uL Hgb 8.0 L (12.0-16.0) g/dL Hct 23.5 L (37-47) % Plt Count 280 (130-400) K/uL BMP 08/09/18 07:59 Sodium 138 Potassium 3.9 Chloride 107 Carbon Dioxide 23 BUN 20 H Creatinine 0.96 Glucose 222 H Calcium 8.7
--- NOTE | 2018-08-09 18:30 | CT Scan Report ---
HEAD CT NONCONTRAST CT DOSE: 767.83 mGy.cm HISTORY: Confusion TECHNIQUE: Multiaxial CT images of the head were performed without the use of intravenous contrast. A utomated exposure control was utilized for this study. A dose lowering technique was utilized adheri ng to the principles of ALARA. Comparison: Outside hospital head CT 08/06/2018. Findings: The paranasal sinuses and mastoid air cells are clear. The calvarium and skull base are int act. There is no mass, hematoma, midline shift, acute infarct. White matter hypodensity is nonspecifi c but suggestive of microvascular ischemic change. The ventricles and sulci demonstrate mild age-rela kvng involutional changes. Impression: No acute intracranial abnormality. Atrophy and microvascular ischemic changes. Electronically signed by: Reed Monsivais M.D. 08/09/2018 6:29 PM
[2018-08-09] MEDS ORDERED: SODIUM CHLORIDE 0.9% 500 ML IV ONE (20:24)
[2018-08-09] MEDS ORDERED: POTASSIUM CHLORIDE 20 MEQ TABCR PO STA (20:28)
[2018-08-09] MEDS ORDERED: MAGNESIUM SULFATE / D5W 1 GM/100 ML BAG IV ONE (20:45)
[2018-08-09] MEDS: ATORVASTATIN 40 MG TAB PO SCH (20:47)
[2018-08-09] MEDS: DOCUSATE SODIUM/SENNA 50/8.6MG TAB PO SCH (20:47)
[2018-08-09] MEDS ORDERED: INSULIN GLARGINE SOLOSTAR 100 UNITS/ML 3 ML PEN SC ONE ×2 (21:00)
[2018-08-09] MEDS ORDERED: INSULIN GLARGINE SOLOSTAR 100 UNITS/ML 3 ML PEN SQ SCH (21:00)
[2018-08-09] MEDS ORDERED: METOPROLOL SUCC 25MG EXT REL TAB PO SCH (21:00)
[2018-08-09 21:06] LABS: BUN Creatinine Ratio 22.1 (10-20); Calcium 8.8 mg/dl (8.5-10.1); Creatinine Clr Calc Pharmacy 53.5 ml/min; Est GFR (African American) 78.2; Est GFR (Non-African American) 67.5; Potassium 3.9 mmol/L (3.5-5.1)
[2018-08-10] MEDS: METOPROLOL TARTRATE 1 MG/ML VIAL IV PRN ×2 (00:53→18:28)
[2018-08-10] MEDS: POLYETHYLENE (MIRALAX) 17 GM PACK PO SCH ×4 (01:24→17:31)
[2018-08-10] MEDS ORDERED: dilTIAZem HCl 5 MG/ML 5 ML VIAL IV STA (02:27)
[2018-08-10] MEDS ORDERED: SODIUM CHLORIDE 0.9% 500 ML IV ONE (02:27)
[2018-08-10] MEDS ORDERED: dilTIAZem HCl 5 MG/ML 5 ML VIAL IV ONE (02:36)
[2018-08-10 02:48] LABS: Basophils # (auto) 0.02 K/uL (0-0.2); Basophils % (auto) 0.1 %; Eosinophils % (auto) 0.7 %; Hematocrit (blood only) 22.6 % (37-47); Hemoglobin 7.5 g/dL (12.0-16.0); Immature Granulocytes # (auto) 0.11 K/uL (0.00-0.02); Immature Granulocytes % (auto) 0.8 %; Lymphocytes # (auto) 1.85 K/uL (1.2-3.4); Lymphocytes % (auto) 12.9 %; Mean Corpuscular Hgb Conc 33.2 g/dL (32-36); Mean Corpuscular Volume 83.1 fL (80-100); Mean Platelet Volume 9.4 fL (7.4-10.4); Monocytes # (auto) 1.37 K/uL (0.11-0.59); Monocytes % (auto) 9.5 %; Neutrophils # (auto) 10.93 K/uL (1.4-6.5); Platelet Count 281 K/uL (130-400); RDW Coefficient of Variation 14.4 % (11.5-14.5); RDW Standard Deviation 43.9 fL (36.4-46.3); Red Blood Count 2.72 M/uL (4.2-5.4); White Blood Count 14.38 K/uL (4.8-10.8)
[2018-08-10] MEDS ORDERED: SODIUM CHLORIDE 0.9% 250 ML IV PRN ×2 (03:05→10:02)
[2018-08-10 03:08] LABS: Ovalocytes 1+
[2018-08-10 03:16] LABS: Calcium 8.5 mg/dl (8.5-10.1); Creatinine Clr Calc Pharmacy 50.5 ml/min; Magnesium 2.1 mg/dl (1.8-2.4)
[2018-08-10] MEDS ORDERED: METOPROLOL SUCC 25MG EXT REL TAB PO SCH (03:30)
[2018-08-10] MEDS: CEFEPIME 2,000 MG in SYRINGE 7.5 ML IV SCH (04:50)
[2018-08-10] MEDS: ACETAMINOPHEN 325 MG TAB PO PRN ×2 (05:21→08:53)
[2018-08-10] MEDS ORDERED: METOPROLOL SUCC 25MG EXT REL TAB PO STA (07:44)
[2018-08-10 07:53] LABS: BUN Creatinine Ratio 22.1 (10-20); Calcium 8.2 mg/dl (8.5-10.1); Creatinine Clr Calc Pharmacy 56.7 ml/min; Est GFR (African American) 84.3; Est GFR (Non-African American) 72.7; Potassium 4.1 mmol/L (3.5-5.1)
[2018-08-10] MEDS: DONEPEZIL HCL 10 MG TAB PO SCH (08:03)
[2018-08-10] MEDS: CEROVITE ADV FORMULA TAB PO SCH (08:03)
[2018-08-10] MEDS: APIXABAN 5 MG TABLET PO SCH ×2 (08:03→21:07)
[2018-08-10] MEDS: ASPIRIN 81 MG ECTAB PO SCH (08:03)
[2018-08-10] MEDS: CYANOCOBALAMIN 500 MCG TABLET (VITAMIN B-12) PO SCH (08:03)
[2018-08-10] MEDS: LOSARTAN POTASSIUM 25 MG TAB PO SCH (08:03)
[2018-08-10] MEDS: CHOLECALCIFEROL 1,000 UNITS TAB PO SCH (08:03)
[2018-08-10] MEDS ORDERED: INSULIN GLARGINE SOLOSTAR 100 UNITS/ML 3 ML PEN SQ ONE ×2 (08:30→21:00)
[2018-08-10] MEDS: INSULIN ASPART 100 UNITS/ML 3 ML PEN SC SCH ×4 (08:34→21:37)
[2018-08-10 09:08] LABS: Basophils # (auto) 0.03 K/uL (0-0.2); Basophils % (auto) 0.2 %; Eosinophils # (auto) 0.11 K/uL (0-0.5); Eosinophils % (auto) 0.8 %; Hematocrit (blood only) 24.8 % (37-47); Hemoglobin 8.4 g/dL (12.0-16.0); Immature Granulocytes # (auto) 0.11 K/uL (0.00-0.02); Immature Granulocytes % (auto) 0.8 %; Lymphocytes # (auto) 1.69 K/uL (1.2-3.4); Lymphocytes % (auto) 11.8 %; Mean Corpuscular Hgb Conc 33.9 g/dL (32-36); Mean Corpuscular Volume 83.8 fL (80-100); Monocytes # (auto) 1.36 K/uL (0.11-0.59); Monocytes % (auto) 9.5 %; Neutrophils # (auto) 11.07 K/uL (1.4-6.5); Neutrophils % (auto) 76.9 %; Platelet Count 280 K/uL (130-400); RDW Coefficient of Variation 14.2 % (11.5-14.5); RDW Standard Deviation 43.6 fL (36.4-46.3); Red Blood Count 2.96 M/uL (4.2-5.4); White Blood Count 14.37 K/uL (4.8-10.8)
--- NOTE | 2018-08-10 09:36 | Orthopedic Progress Note ---
Date of Service August 10, 2018 Assessment & Plan (1) Closed right hip fracture: Postop day 3 status post right TFN. Begin PT and OT protocols. Partial weightbearing at this time of the right lower extremity. DVT prophylaxis with SCDs, REYNA hose, and Eliquis twice daily. Continue current pain management. Patient on Rocephin Ortho will sign off for now. Subjective no right hip pain currently. she notes some continued neck pain Physical Exam Physical Exam: right hip incision healing well. No signs infection. small amount drainage. Dressing changed Results & Data Vital Signs (Past 12 Hours) Vital Signs Temp Pulse Pulse Pulse Resp BP BP 08/10/18 07:56 36.8 C 83 18 145/79 H 08/10/18 07:00 36.8 C 101 H 16 145/79 H 08/10/18 05:45 36.4 C L 85 16 118/73 08/10/18 05:17 37.1 C 90 18 131/54 L 08/10/18 04:56 36.6 C 88 16 135/76 08/10/18 04:42 36.5 C 88 16 131/74 08/10/18 04:36 36.4 C L 91 H 16 131/72 08/10/18 04:31 36.5 C 89 16 128/56 L 08/10/18 04:26 36.8 C 89 16 136/69 08/10/18 04:19 36.7 C 87 16 134/78 08/10/18 04:00 08/10/18 00:53 145 H 08/09/18 23:16 36.8 C 90 17 BP Pulse Ox Pulse Ox 08/10/18 07:56 95 08/10/18 07:00 95 08/10/18 05:45 96 08/10/18 05:17 97 08/10/18 04:56 96 08/10/18 04:42 97 08/10/18 04:36 94 08/10/18 04:31 95 08/10/18 04:26 95 08/10/18 04:19 98 08/10/18 04:00 95 08/10/18 00:53 08/09/18 23:16 123/69 92
[2018-08-10] MEDS ORDERED: INSULIN GLARGINE SOLOSTAR 100 UNITS/ML 3 ML PEN SC SCH (12:00)
--- NOTE | 2018-08-10 13:26 | Consultation Report ---
DATE OF CONSULTATION: 08/10/2018 INPATIENT CARDIOLOGY CONSULTATION CONSULTATION REQUESTED BY: Dr. Vanegas. REASON FOR CONSULTATION: Paroxysmal atrial flutter with rapid ventricular response. HISTORY OF PRESENT ILLNESS: Mrs. Arellano is a very pleasant yet somewhat confused 77-year-old woman who normally follows with Dr. De Guzman of our cardiology practice along with Roxane Echeverria. She was transferred to [facility] from [facility] on 08/06/2018 after a traumatic fall where she sustained a right hip fracture after falling in a grocery store parking lot. She was taken to the operating room on the for her closed reduction and she was in sinus rhythm. Postoperatively, the patient started having runs of atrial flutter with rapid ventricular response into the 140s and she was restarted on her outpatient regimen of metoprolol and Eliquis. These episodes are completely asymptomatic. She states that she has not felt her heart racing at all and denies any chest pain, shortness of breath, palpitations, lightheadedness, dizziness, or syncope. The family was concerned and asked the cardiology to get involved. Her son, Jayme who is a patient of mine, is at the bedside during the examination. Currently, she states that her hip is getting better nicely and they are hoping to get her to outpatient rehab soon. Unfortunately, her hemoglobin has trended down. PAST SURGICAL HISTORY: 1. Recent internal fixation of right hip fracture. 2. Carpal tunnel surgery. 3. Shoulder surgery with rotator cuff repair. 4. Colonoscopies. 5. Cataract surgery. 6. Upper endoscopy. 7. Partial hysterectomy. 8. Appendectomy. MEDICAL ILLNESSES: 1. Paroxysmal atrial flutter, on chronic Eliquis anticoagulation. 2. Chronic anemia. 3. Chronic kidney disease. 4. Diabetes. 5. Mixed vascular and neurodegenerative dementia. 6. Nonobstructive coronary artery disease by cardiac catheterization 2016. 7. Dyslipidemia. FAMILY HISTORY: Noncontributory. SOCIAL HISTORY: The patient has a very remote tobacco use history, quit in 1. Denies any alcohol or recreational drug use. ALLERGIES: LISINOPRIL. MEDICATIONS AN OUTPATIENT: 1. Metoprolol succinate 25 mg daily. 2. Eliquis 5 mg b.i.d. 3. Aricept 10 mg daily. 4. Invokana daily. 5. Trulicity weekly. 6. Insulin as directed. 7. Metformin b.i.d. 8. Losartan 25 mg daily. 9. Aspirin 81 mg daily. PHYSICAL EXAMINATION: VITALS: Temperature 36.8, pulse 79, respiratory rate 12, blood pressure 124/62. GENERAL: Awake, alert, oriented x3, mildly confused, but no acute distress. HEENT: Normocephalic, atraumatic. Pupils equal, round, reactive to light and accommodation. Extraocular muscles intact. Anicteric sclerae. Moist mucous membranes. NECK: No JVD, no bruit. CARDIOVASCULAR: Regular. Positive S4. Normal S1 and S2. No S3. Mild 2/6 mid to late systolic ejection murmur greatest at the right sternal border, second intercostal space without rubs. PULMONARY: Clear to auscultation bilaterally. No rales, rhonchi, or wheezing. ABDOMEN: Bowel sounds x4, soft. No rebound, guarding, tenderness. No organomegaly. EXTREMITIES: No clubbing, cyanosis or edema. +2 pedal pulses bilaterally. SKIN: Warm and dry. The right hip is bandaged. DIAGNOSTIC DATA: Review of telemetry monitoring shows intermittent sinus rhythm with underlying right bundle branch block and atrial flutter with 2:1 conduction. LABORATORY STUDIES OF SIGNIFICANCE: Hemoglobin 7.5. Sodium 138, potassium 4.1, BUN 17, creatinine 0.8. IMPRESSION: 1. Asymptomatic paroxysmal atrial flutter in the postoperative setting complicated by anemia. 2. Anemia with a hemoglobin of 7.5. 3. Postoperative right internal fixation of a hip fracture. 4. Dementia. 5. Hypertension. 6. Diabetes. 7. Chronic kidney disease. RECOMMENDATIONS: It was my pleasure to see Mr. Arellano in consultation today. From a cardiac standpoint, given the fact that she is asymptomatic and only having short bursts of her atrial flutter, no further cardiac intervention is necessary at this time. I believe the most prudent course of action would be to transfuse her to maintain hemoglobin greater than 9 and continue with her normal postoperative rehabilitation. She will be maintained on her metoprolol and Eliquis. This plan was discussed with the patient and her son and they are both in agreement. It is okay to discharge the patient to rehab from a cardiac standpoint.
--- NOTE | 2018-08-10 13:35 | Pharmacy Report ---
Pharmacy Glycemic Short Note 2 - Date of Service August 10, 2018 - Glycemic Short BSG Results (Last 24 hours): 08/09/18 08/09/18 08/09/18 17:37 20:31 20:41 Glucose 119 H POC Glucose 181 H 138 H 08/10/18 08/10/18 08/10/18 02:34 06:39 07:29 Glucose 171 H 190 H POC Glucose 204 H 08/10/18 11:20 Glucose POC Glucose 239 H ASSESSMENT: * Pt has received 73 units of insulin over the past 24hrs * 39 units of basal * 34 units of prandial/correctional insulin * BSGs ranging 138-324 mg/dl * AM fasting BSG is elevated at 204 mg/dl --> will increase basal insulin dosing * Post-prandial BSGs are elevated as well - will tighten CF/CR * Her outpt glycemic management needs improved as evidenced by her A1C of 9.2%. Based on age and co morbidities a goal A1C of 7.5-8.0% is likely appropriate. PLAN FOR INPATIENT GLYCEMIC CONTROL: increase regimen by 20%; increase to total daily dose of ~ 90 units/day * Hold outpatient diabetes medications * Basal insulin * Lantus 40 units this AM + 10 units this evening - will try to work dosing back to Q24hr dosing at HS * Bolus insulin * NovoLog per scale ACHS or Q6hrs while NPO * Goal Range: Low 110 mg/dL - High 140 mg/dL * Correction Factor: 10 mg/dL/unit * Nutritional / Prandial insulin per carb ratio of 1 unit per 4 grams CHO consumed
--- NOTE | 2018-08-10 14:44 | Hospitalist Progress Note ---
Date of Service August 10, 2018 Assessment & Plan (1) Closed right hip fracture: Right hip fracture after a mechanical fall S/P Closed Reduction Internal Fixation Right Hip with Cephalomedullary Nail POD #3 Post op Anemia Appreciate Orthopedics help Monitor CBC DVT Px: On eliquis Partial weightbearing right lower extremity PT/OT Nonobstructive CAD Echocardiogram 06/2017-EF 65 to 69%, no significant valvular disease Continue aspirin, statin, beta-fracisco UTI: Urine Culture: Pansensitive E.coli Blood Culture: No growth to date Continue Cefepime WBC count stable (2) Atrial flutter: Atrial flutter RVR Currently in Sinus Asymptomatic Transient in setting of Post Op anemia Will keep Hb >9 Transfuse PRBCs PRN Continue metoprolol Continue Eliquis Appreciate Cardiology Input (3) CKD (chronic kidney disease), stage III: baseline creat ~ 1.0 Monitor renal function (4) DM type 2 (diabetes mellitus, type 2): Hgb A1c 9.2 Hold oral agents and Trulicity Continue ISS, Lantus Pharmacy Glycemic control consult Pharmacy to manage Insulin therapy (5) Hypertension: BP Stable Continue metoprolol, losartan (6) Chronic anemia: Baseline hemoglobin ~ 10-11 Monitor CBC (7) Mild dementia: Continue Aricept (8) DVT prophylaxis: Eliquis Disposition: Needs Rehab placement Subjective Patient is seen and examined post operatively Doing well today Heart rate is controlled Denies right hip pain Discussed with Cardiology today Will give 1 unit PRBCs today Denies chest pain, SOB, dizziness, dysuria, bleeding issues Family at bedside Review of Systems Review of Systems: All systems reviewed & are unremarkable except as noted in HPI & below Physical Exam Physical Exam: Physical Exam: Vitals signs as noted above General Appearance:Moderately built and nourished, no apparent distress Head: normocephalic, Atraumatic Eyes: normal inspection, EOMI Neck: supple, Trachea midline Respiratory/Chest: Normal breath sounds, CTA Cardiovascular: S1, S2, No murmur Abdomen/GI:Soft, Non tender, Bowel sounds present Extremities/Musculoskelatal:normal inspection, no edema, Right hip surgical site in dressing Neurologic/Psych:grossly no focal neurological deficits Skin: normal color, warm Results & Data Vital Signs (Past 12 Hours) Vital Signs Temp Pulse Pulse Resp BP BP Pulse Ox 08/10/18 14:31 36.7 C 85 16 125/55 L 96 08/10/18 13:17 81 16 111/63 97 08/10/18 12:15 80 16 124/62 95 08/10/18 12:00 79 16 124/62 94 08/10/18 11:45 74 16 134/61 96 08/10/18 11:31 83 16 115/70 95 08/10/18 11:14 36.8 C 75 16 113/65 94 08/10/18 08:00 84 08/10/18 07:56 36.8 C 83 18 145/79 H 95 08/10/18 07:00 36.8 C 101 H 16 145/79 H 95 08/10/18 05:45 36.4 C L 85 16 118/73 96 08/10/18 05:17 37.1 C 90 18 131/54 L 97 08/10/18 04:56 36.6 C 88 16 135/76 96 08/10/18 04:42 36.5 C 88 16 131/74 97 08/10/18 04:36 36.4 C L 91 H 16 131/72 94 08/10/18 04:31 36.5 C 89 16 128/56 L 95 08/10/18 04:26 36.8 C 89 16 136/69 95 08/10/18 04:19 36.7 C 87 16 134/78 98 08/10/18 04:00 Pulse Ox 08/10/18 14:31 08/10/18 13:17 08/10/18 12:15 08/10/18 12:00 08/10/18 11:45 08/10/18 11:31 08/10/18 11:14 08/10/18 08:00 08/10/18 07:56 08/10/18 07:00 08/10/18 05:45 08/10/18 05:17 08/10/18 04:56 08/10/18 04:42 08/10/18 04:36 08/10/18 04:31 08/10/18 04:26 08/10/18 04:19 08/10/18 04:00 95 Laboratory Results Short CBC 08/10/18 08/10/18 08/10/18 Range/Units 02:34 08:33 08:33 WBC 14.38 H 14.37 H (4.8-10.8) K/uL Hgb 7.5 L 8.4 L Cancelled (12.0-16.0) g/dL Hct 22.6 L 24.8 L Cancelled (37-47) % Plt Count 281 280 (130-400) K/uL BMP 08/09/18 08/10/18 08/10/18 20:31 02:34 06:39 Sodium 141 138 138 Potassium 3.9 4.0 4.1 Chloride 110 H 107 108 H Carbon Dioxide 25 27 26 BUN 19 H 18 17 Creatinine 0.84 0.89 0.79 Glucose 119 H 171 H 190 H Calcium 8.8 8.5 8.2 L
[2018-08-10 15:25] LABS: Hematocrit (blood only) 27.5 % (37-47); Hemoglobin 9.9 g/dL (12.0-16.0)
[2018-08-10 20:22] LABS: Hematocrit (blood only) 28.6 % (37-47); Hemoglobin 9.7 g/dL (12.0-16.0)
[2018-08-10] MEDS: ATORVASTATIN 40 MG TAB PO SCH (21:08)
[2018-08-10] MEDS: METOPROLOL SUCC 25MG EXT REL TAB PO SCH (21:09)
[2018-08-10] MEDS: DOCUSATE SODIUM/SENNA 50/8.6MG TAB PO SCH (21:10)
[2018-08-11] MEDS: POLYETHYLENE (MIRALAX) 17 GM PACK PO SCH ×2 (01:28→05:25)
[2018-08-11] MEDS: CEFEPIME 2,000 MG in SYRINGE 7.5 ML IV SCH (05:25)
[2018-08-11 05:38] LABS: Hematocrit (blood only) 26.8 % (37-47); Hemoglobin 9.3 g/dL (12.0-16.0); Mean Corpuscular Hgb Conc 34.7 g/dL (32-36); Mean Platelet Volume 9.6 fL (7.4-10.4); Platelet Count 286 K/uL (130-400); RDW Coefficient of Variation 14.4 % (11.5-14.5); RDW Standard Deviation 43.5 fL (36.4-46.3); Red Blood Count 3.27 M/uL (4.2-5.4); White Blood Count 14.86 K/uL (4.8-10.8)
[2018-08-11 06:06] LABS: BUN Creatinine Ratio 17.7 (10-20); Calcium 8.7 mg/dl (8.5-10.1); Creatinine Clr Calc Pharmacy 50.9 ml/min; Est GFR (Non-African American) 63.8; Potassium 3.9 mmol/L (3.5-5.1)
[2018-08-11] MEDS: CYANOCOBALAMIN 500 MCG TABLET (VITAMIN B-12) PO SCH (07:52)
[2018-08-11] MEDS: DONEPEZIL HCL 10 MG TAB PO SCH (07:52)
[2018-08-11] MEDS: METOPROLOL SUCC 25MG EXT REL TAB PO SCH (07:52)
[2018-08-11] MEDS: LOSARTAN POTASSIUM 25 MG TAB PO SCH (07:53)
[2018-08-11] MEDS: CHOLECALCIFEROL 1,000 UNITS TAB PO SCH (07:53)
[2018-08-11] MEDS: CEROVITE ADV FORMULA TAB PO SCH (07:53)
[2018-08-11] MEDS: ASPIRIN 81 MG ECTAB PO SCH (07:53)
[2018-08-11] MEDS: APIXABAN 5 MG TABLET PO SCH (07:54)
[2018-08-11] MEDS: INSULIN ASPART 100 UNITS/ML 3 ML PEN SC SCH ×2 (08:17→12:05)
--- NOTE | 2018-08-11 11:58 | Hospitalist Progress Note ---
Date of Service August 11, 2018 Assessment & Plan (1) Closed right hip fracture: Right hip fracture after a mechanical fall S/P Closed Reduction Internal Fixation Right Hip with Cephalomedullary Nail POD #4 Post op Anemia Appreciate Orthopedics help Monitor CBC DVT Px: On eliquis Partial weightbearing right lower extremity PT/OT Hb stable Nonobstructive CAD Echocardiogram 06/2017-EF 65 to 69%, no significant valvular disease Continue aspirin, statin, beta-fracisco UTI: Urine Culture: Pansensitive E.coli Blood Culture: No growth to date Complete IV Ceftriaxone/Cefepime course Denies dysuria, hematuria (2) Atrial flutter: Atrial flutter RVR Currently in Sinus Asymptomatic Transient in setting of Post Op anemia Will keep Hb >9 Transfuse PRBCs PRN Continue metoprolol increased to 50mg BID Continue Eliquis Appreciate Cardiology Input Needs follow up with Cardiology as outpatient (3) CKD (chronic kidney disease), stage III: baseline creat ~ 1.0 Monitor renal function (4) DM type 2 (diabetes mellitus, type 2): Hgb A1c 9.2 Hold oral agents and Trulicity Continue ISS, Lantus Pharmacy Glycemic control consult Pharmacy to manage Insulin therapy (5) Hypertension: BP Stable Continue metoprolol, losartan (6) Chronic anemia: Baseline hemoglobin ~ 10-11 Monitor CBC (7) Mild dementia: Continue Aricept (8) DVT prophylaxis: Eliquis Disposition: Plan to discharge to rehab facility today Subjective Patient is seen and examined at bedside Doing much better today offers no complaints Heart rate is controlled Hb is stable Denies right hip pain Denies chest pain, SOB, dizziness, dysuria, bleeding issues Family at bedside Review of Systems Review of Systems: All systems reviewed & are unremarkable except as noted in HPI & below Physical Exam Physical Exam: Physical Exam: Vitals signs as noted above General Appearance:Moderately built and nourished, no apparent distress Head: normocephalic, Atraumatic Eyes: normal inspection, EOMI Neck: supple, Trachea midline Respiratory/Chest: Normal breath sounds, CTA Cardiovascular: S1, S2, No murmur Abdomen/GI:Soft, Non tender, Bowel sounds present Extremities/Musculoskelatal:normal inspection, no edema, Right hip surgical site in dressing Neurologic/Psych:grossly no focal neurological deficits Skin: normal color, warm Results & Data Vital Signs (Past 12 Hours) Vital Signs Temp Pulse Pulse Pulse Resp BP Pulse Ox 05/26/19 08:00 74 08/11/18 07:30 36.7 C 73 18 130/67 92 08/11/18 03:24 37.0 C 86 17 125/67 95 Laboratory Results Short CBC 08/10/18 08/10/18 08/11/18 Range/Units 15:15 20:14 05:19 WBC 14.86 H (4.8-10.8) K/uL Hgb 9.9 L 9.7 L 9.3 L (12.0-16.0) g/dL Hct 27.5 L 28.6 L 26.8 L (37-47) % Plt Count 286 (130-400) K/uL BMP 08/11/18 05:19 Sodium 141 Potassium 3.9 Chloride 107 Carbon Dioxide 27 BUN 16 Creatinine 0.88 Glucose 80 Calcium 8.7
[2018-08-11] MEDS ORDERED: POLYETHYLENE (MIRALAX) 17 GM PACK PO PRN (12:06)
--- NOTE | 2018-08-11 12:07 | Cardiology Progress Note ---
Date of Service August 11, 2018 Assessment & Plan (1) Atrial flutter: paroxysmal asymptomatic already on metoprolol and Eliquis discussed pathophysiology with family of atrial flutter and risk of cva counseled that as long as she is fully anticoagulated and symptom free, no further intervention or changes are necessary family in agreement ok to d/c to home/rehab/off tele from cardiac standpoint Subjective Pt seen and examined with multiple family members at bedside. States that she feels great and wants to be discharged. Denies cp, sob, palpitations, lightheadedness or dizziness. tele reviewed: approx 1 hour of aflutter with 2:1 conduction overnight, otherwise, sinus Review of Systems Review of Systems: All systems reviewed & are unremarkable except as noted in HPI & below Physical Exam Physical Exam: General: Awake, alert and oriented x 3. No acute distress. HEENT: Normocephalic, atraumatic. Pupils equal, round and reactive to light and accommodation. Extraocular muscles are intact. Anicteric sclera. Moist mucous membranes. Neck: No JVD. No bruit. Cardiovascular: Regular. Positive S-4. Normal S-1 and S-2. No S-3. No murmurs or rubs. Pulmonary: Clear to auscultation B/L. No rales, rhonchi or wheezing Abdomen: Bowel sounds x 4, soft. No rebound, guarding or tenderness. No organomegaly. Extremities: No clubbing, cyanosis or edema. +2 pedal pulses bilaterally. Skin: Warm and dry. Results & Data Vital Signs (Past 12 Hours) Vital Signs Temp Pulse Pulse Pulse Resp BP Pulse Ox 08/11/18 08:00 74 08/11/18 07:30 36.7 C 73 18 130/67 92 08/11/18 03:24 37.0 C 86 17 125/67 95
--- NOTE | 2018-08-11 12:08 | Discharge Summary ---
Date of Service August 11, 2018 Admission HPI Per Admitting Provider 77-year-old female who was transferred from [facility] ED for management of right hip fracture. Patient received pain medication prior to her arrival history is somewhat limited from her at this time. is the bedside and reports that they were out shopping for groceries when she tripped trying to get into the car. There was no loss of consciousness. No associated chest pain or shortness of breath. reports patient has been doing well recently. No reported chest pain or exertional shortness of breath. Denies other recent illnesses, fevers, chills. No abdominal pain, nausea, vomiting, diarrhea. Denies urinary symptoms. At the time my exam, patient does arouse to loud verbal stimuli, reports she is having right hip pain however that is controlled. Admission Exam Per Admitting Provider Constitutional: WD/WN, vitals as above Eyes: PERRL, conjunctivae normal, anicteric sclerae ENMT: external ear and nose normal, oropharynx normal Respiratory: normal respiratory effort, lungs clear to auscultation Cardiovascular: Rate/Rhythm: regular rate and regular rhythm Vessels: normal peripheral pulses Extremities: no edema Gastrointestinal (Abdomen): normal bowel sounds, soft, nontender, no hepatosplenomegaly Musculoskeletal: Extremities: + abnormal strength (Unable to assess strength secondary to reduced consciousness from pain medications, patient does move all extremities) and + lower leg abnormality (Right leg shortened and externally rotated) Right; no cyanosis and no clubbing Skin: no rashes, warm and dry Neurologic: PERRL, EOMI, accommodation nl, no face palsy, no dysarthria Psychiatric: Orientation: + not alert (Patient arouses to loud verbal stimuli however falls back to sleep quickly during exam and does not answer most questions) Principal Diagnosis Discharge Information Discharge Diagnosis Closed right hip fracture Urinary Tract Infection Atrial flutter RVR Discharge Goals Decrease discomfort,Improve function,Improve disease control Discharge Activity Limitations Per instructions/follow-up Discharge Data Allergies Allergy/AdvReac Type Severity Reaction Status Date / Time lisinopril AdvReac Mild cough Verified 09/11/16 08:25 Consultations 08/06/18 17:26 Consult Case Management - Discharge Planning Routine 08/06/18 17:31 Consult Anesthesiology Routine Consult Case Management - Discharge Planning Routine Consult Orthopedic Surgery Routine 08/07/18 15:34 Consult Case Management - Discharge Planning Routine 08/10/18 08:00 Consult Cardiology Routine Procedures Performed Operation Date: 08/07/18 07:10 Actual Procedures p Closed Reduction Internal Fixation Right Hip with Cephalomedullary Nail(Right) - Luis Felipe Miller DO Femur X ray: 1. Mildly displaced avulsion fracture of the lesser trochanter. This traditionally in an adult raises concern for an underlying lesion and a pathologic avulsion fracture. Correlate for history of malignancy. An iliopsoas avulsion fracture is atypical in a patient of this age apart from a pathologic fracture. 2. Degenerative changes of the knee and hip. CT head: No acute intracranial abnormality. Atrophy and microvascular ischemic changes. Ordered Studies 08/07/18 11:00 FL fluoroscopy <1hr Routine FL hip RT 2-3V Routine 08/09/18 17:56 CT head/brain wo con Urgent Hospital Course (1) Closed right hip fracture: Right hip fracture after a mechanical fall S/P Closed Reduction Internal Fixation Right Hip with Cephalomedullary Nail POD #4 Post op Anemia Appreciate Orthopedics help Monitor CBC DVT Px: On eliquis Partial weightbearing right lower extremity PT/OT Hb stable Nonobstructive CAD Echocardiogram 06/2017-EF 65 to 69%, no significant valvular disease Continue aspirin, statin, beta-fracisco UTI: Urine Culture: Pansensitive E.coli Blood Culture: No growth to date Complete IV Ceftriaxone/Cefepime course Denies dysuria, hematuria (2) Atrial flutter: Atrial flutter RVR Currently in Sinus Asymptomatic Transient in setting of Post Op anemia Will keep Hb >9 Transfuse PRBCs PRN Continue metoprolol increased to 50mg BID Continue Eliquis Appreciate Cardiology Input Needs follow up with Cardiology as outpatient (3) CKD (chronic kidney disease), stage III: baseline creat ~ 1.0 Monitor renal function (4) DM type 2 (diabetes mellitus, type 2): Hgb A1c 9.2 Hold oral agents and Trulicity Continue ISS, Lantus Pharmacy Glycemic control consult Pharmacy to manage Insulin therapy (5) Hypertension: BP Stable Continue metoprolol, losartan (6) Chronic anemia: Baseline hemoglobin ~ 10-11 Monitor CBC (7) Mild dementia: Continue Aricept (8) DVT prophylaxis: Eliquis Disposition: Plan to discharge to rehab facility today Total Time Total Time Spent Total Time Spent (In Minutes): 41 minutes Total Time Includes: Examination of the Patient, Discharge Planning, Medication Reconciliation, Communication With Other Providers and Other Discharge Plan Discharge Items Patient Disposition: Transfer Intermediate Fac Reason For Visit: RIGHT HIP FRACTURE Discharge Diagnosis: Closed right hip fracture Urinary Tract Infection Atrial flutter RVR Discharge Goals: Decrease discomfort, Improve disease control and Improve fun ction Activity: Per 'Additional Instructions' section Weightbearing: Right partial Non-emergency contact: Primary Care Provider, Surgeon and Head Miller Call non-emergency contact if: you have any medication questions, your symptoms worsen, your pain is not controlled, your pain is worsening, your pain is unusual for you, your pain is concerning for you and you have a fever Follow-up/Referrals: Luis Felipe Miller, [Physician] - (Schedule follow up in 2 weeks from the surgical day for staple removal.) Rosalinda Howard DO [Primary Care Provider] - Diet: Carb Consistent or DM2 and Heart Healthy Addtl Provider Instructions: Follow up with your Primary Care Physician in 1 week after being discharged from Rehab facility Follow up with your Head Miller / in 2-4 weeks Seek immediate medical attention if your symptoms reoccur or worsen [facility] DISCHARGE INSTRUCTIONS: HIP FRACTURE SELF CARE INSTRUCTIONS: A. You are to ambulate with a walker or crutches for approximately 6 weeks. B. You are PARTIAL WEIGHT BEARING on your operative lower extremity for at least 6 weeks. C. Wear low heeled shoes with non-slip soles D. Be sure that your floors are free of things that could trip you throw rugs, electrical cords, and small objects. Avoid wet and waxed floors, especially with crutches/walker/cane. E. Try to walk several times a day with rest periods between. F. You may shower 48 hours after surgery and get the incision area wet, but DO NOT soak or submerge incision area in water. (No baths, swimming pools, hot tubs) G. You may have a large, band-aid like dressing over your incision (Aquacel). This will remain on your incision for 7 days, and then can be removed. You CAN shower with this on. If incision is leaking through the dressing, please call the office . H. Do NOT apply soap or any ointment/lotions directly over incision. I. You may use ice as needed to operative site. SPECIAL CARE INSTRUCTIONS: VERY IMPORTANT TO READ AND REVIEW A. You may be at risk for phlebitis or blood clots. a. Wear surgical stockings (REYNA hose) for 2 weeks after surgery to improve circulation and reduce swelling. b. Take Eliquis 5mg BID as directed by your primary care provider. This is your blood thinner. c. If you are on Coumadin- you will have daily/weekly b lood work to monitor your levels. This will be done by either your family physician/speech therapist (if you are on Coumadin chronically) versus your orthopedic surgeon. Expect a phone call the day of or the day after your blood work is drawn to adjust your dose accordingly. B. There are a few signs you need to watch for after you are home. Call [facility] at [phone] if you experience any of the following: a. If you have a temperature of 101 degrees or higher. b. Sudden increase in pain in your hip not relieved by rest or pain medication. c. Any fluid or drainage from the incision; redness of the incision. d. Shortness of breath or chest pain. C. Call your physician if: a. Temperature is greater than 101 degrees (F). b. Pain is not relieved by prescribed pain med ications. c. Increase drainage or redness from incision. d. Unanswered questions or concerns. D. Pain Medication: a. You will be prescribed pain medication upon discharge that should last till your first post-operative appointment. b. If you experience nausea and/or skin rash, discontinue this medication and contact our office for an alternative medication. c. Caution- narcotic pain medication can cause constipation. FOLLOW UP VISIT: Please call [facility] at [phone] to schedule a follow up appointment with Dr. Miller in 10-14 days from the date of your surgery date. Prescriptions: New metoprolol succinate 50 mg tablet extended release 24 hr 50 mg PO BID 30 Days Qty: 60 RF: 0 polyethylene glycol 3350 [Miralax] 17 gram Powder In Packet 17 g PO DAILY PRN (Reason: constipation) 30 Days Qty: 30 RF: 0 docusate sodium [Colace] 100 mg capsule 100 mg PO BID PRN (Reason: constipation) Qty: 60 RF: 0 Continued atorvastatin 40 mg tablet 40 mg PO HS RF: 0 donepezil 10 mg tablet 10 mg PO DAILY RF: 0 cyanocobalamin (vitamin B-12) 1,000 mcg Tablet 1,000 mcg PO DAILY RF: 0 aspirin 81 mg Tablet,Delayed Release (Dr/Ec) 81 mg PO DAILY RF: 0 losartan 25 mg tablet 25 mg PO DAILY RF: 0 metformin 500 mg tablet extended release 24 hr 1,000 mg PO BID RF: 0 Centrum Silver 0.4-300-250 mg-mcg-mcg Tablet 1 tab PO DAILY RF: 0 Basaglar KwikPen U-100 Insulin 100 unit/mL (3 mL) insulin pen 24 unit subcut HS RF: 0 Myrbetriq 25 mg tablet extended release 24 hr 25 mg PO DAILY RF: 0 Eliquis 5 mg tablet 5 mg PO BID RF: 0 Invokana 100 mg tablet 100 mg PO DAILY RF: 0 Discontinued metoprolol succinate 25 mg Tablet Extended Release 24 Hr 25 mg PO DAILY RF: 0 Stand-Alone Forms: [facility] Discharge Orders: Discharge Order (Routine); Ordered 08/11/18 Ordered By: Isidoro Vanegas Skilled Items Patient informed of condition?: Yes DNR: No Discharge Level of Care: Acute rehab Communicable Disease: No Discharge Prognosis: Improving Admission Data Admit Date/Time: 08/06/18 16:53 Attending Provider: Isidoro Vanegas Admit Provider: Eli Dobbins Primary Care Provider: Rosalinda Howard Other Providers: Eli Dobbins ; Irma Piper ; Luis Felipe Miller ; Ayo Anthony Service: Telemetry Other Interventions: Discharge Summary Assessment (RN) Last Done: 08/11/18 12:01 Pending Studies at Discharge: No DC Date/Time DO NOT enter until pt leaves facility: 08/11/18 12:50
[2018-08-12] MEDS ORDERED: INSULIN GLARGINE SOLOSTAR 100 UNITS/ML 3 ML PEN SQ SCH (18:00)
== END 2018-08-11 12:50 | DRG 481 ==
LOC: 3W 16:53 → SUATTDRO 16:53 → 2S 08-09 18:31